=== PATIENT | male | born 1945 | race Caucasian/White ===

== ENCOUNTER 2024-01-26 18:51 | Inpatient (IN) | payer MEDICARE, SELFPAY ==
[2024-01-26] VITALS (44 sets, daily range): BP systolic 100–183; BP diastolic 51–94; PULSE 2–69; BMI 25.7
[2024-01-26] MEDS: NITROGLYCERIN PREMIX 250 IV (17:13)
--- NOTE | 2024-01-26 17:27 | ED.GENMED ---
History of Present Illness
<Sheldon Ortiz PA-C - Last Filed: 01/26/24 23:10>
General
Chief Complaint: Breathing Problem
Time Seen by Provider: 01/26/24 17:11
History of Present Illness
History of Present Illness:
78-year-old male with history of chronic kidney disease and congestive heart failure presents to the emergency department for evaluation of sudden onset shortness of breath that developed while he was at the [employer] swimming. Lifeguards reportedly
measured a pulse oximetry of 50%. On arrival via EMS patient is on CPAP with O2 sat in the 70s, he is somnolent but answers questions appropriately, diffusely pale.
Review of Systems
<Sheldon Ortiz PA-C - Last Filed: 01/26/24 23:10>
Review of Systems
Allergies reviewed?: Yes
All Other Systems: ROS reviewed and negative except as documented in HPI and ROS
Phy Exam
<Sheldon Ortiz PA-C - Last Filed: 01/26/24 23:10>
Physical Exam
Physical Exam:
GEN: Acute respiratory distress, general pallor, somnolent
Eyes: PERRLA, EOMs intact, no scleral icterus
HENT: NCAT, oral mucosa moist, positive JVD
Lungs: Inspiratory crackles and expiratory wheezes heard throughout all lung cortés
Cardiac: RRR, no M/R/G, no peripheral edema. Radial pulses 2+ bilat
Abdomen: S, NT, ND, NABS, no masses or hepatosplenomegaly
Neuro: AO x 3, no focal deficits to BUE/BLE, normal sensation throughout
MSK: No gross deformity or ecchymosis. No edema. No digital clubbing
Skin: No rashes, petechiae. Normal color, no pallor or jaundice.
Psych: Calm, cooperative, proper hygiene
Scores
<Sheldon Ortiz PA-C - Last Filed: 07/22/24 23:10>
Heart Failure Risk
Heart Failure Risk Score: Yes
History of Stroke or TIA: No
History of intubation for respiratory distress: No
Heart rate on ED arrival >/= 110: Yes
SaO2 <90% on arrival on room air: Yes
HR >/=110 during 3min walk test (or too ill to perform test): Yes
ECG has acute ischemic changes: No
Urea >/=12mmol/L (BUN 33.6mg/dL): Yes
Serum CO2>/=35mmol/L: Yes
Troponin I or T elevated to OR Level (0.4mg/dL): Yes
NT-proBNP >/=5,000ng/L (5,000pg/ml): Yes
HF Risk Score: 9
Admission Status: VERY HIGH RISK 89% Consider admission to hospital
Course
<Sheldon Ortiz PA-C - Last Filed: 01/26/24 23:10>
Orders/Labs/Results
Orders:
Orders
01/26/24 Dinner
NPO
Allow oral meds: Yes
Allow clear liquids: Sips of Clears
01/26/24 17:11
Cardiac Monitoring- Treatment ONCE
IV Insert/Care/Rem.- Treatment PRN
Nitroglycerin 100 mg/250 ml [Nitroglycerin Premix] 100 mg in 250 ml IV NOW
Initial dose in mcg/min, then titrate:: 50
Titrate to keep:: SBP < 160 mmHg
Titrate by mcg/min:: 5 mcg/min, may increase by 10 mcg/min if dose > 20 mcg/min
Frequency of titrations (minutes):: every 3-5 minutes
Maximum dose in mcg/min:: 200
Begin to taper infusion when:: Remained at goal for 2hrs
Taper by mcg/min:: 5 mcg/min
Frequency of taper (minutes) if patient maintains goal:: 30
Taper to off?: Yes
If infusion off & no longer maintaining goal:: Contact Provider
Bipap [RESP] Stat
Patient to use own unit?: No
Inspiratory Pressure (cm H2O): 12
Expiratory Pressure (cm H2O): 5
01/26/24 17:12
CR Chest Portable - 1 View Urgent
Comment:
Reason For Exam: sob
Reason Study Needs to be Portable: Patient Unstable
01/26/24 17:14
Complete Blood Count/With Diff Urgent
Comprehensive Metabolic Panel Urgent
Magnesium Urgent
NT-proBNP Urgent
PTT Urgent
Prothrombin Time Urgent
TSH Urgent
Troponin I Urgent
01/26/24 17:24
Lactic Acid Urgent
Venous Blood Gas Urgent
%Oxygen/Room Air: 50
01/26/24 17:30
Electrocardiogram (*1) Urgent
Reason for Study: Shortness of Breath
EKG- Treatment ONCE
01/26/24 18:13
Bumetanide [Bumex] 1 mg IV NOW STA
01/26/24 18:24
Admit/Transfer Patient As Directed
Co-Sign Provider:
Level of Care: Inpatient admission
Assign to:: IMU- Intermediate Care
Physician / Group: bertrand
Diagnosis: chf exacerbation
Reason for Hospitalization: chf exacerbation
Expected length of stay greater than two midnights?: Yes
ELOS- Estimated Length of Stay in days: 2
I certify the patient meets the requirements for IP care: Yes
01/26/24 18:25
Code Status As Directed
Resuscitation Status: Do not resuscitate
Reached after discussion with pt or family/Healthcare POA: Yes
DNR Bracelet Application ONCE
01/26/24 20:26
Carvedilol [Coreg] 3.125 mg PO BID
Heparin 5,000 units SC Q12
01/26/24 20:26
Activity As Directed
Activity Level: As Tolerated
Intake/ Output As Directed
Frequency: Per unit guidelines
Records Request [Obtain Records] As Directed
Dates of Information to be Released: progress notes
Type of Information Requested: Progress Notes
Obtain Records from: dr. wolf ned[facility] cardiology outpatient note
Vital Signs As Directed
Frequency: Other
Additional Instructions:: Q12 or per unit guidelines if more frequent.
Weight As Directed
Frequency: Daily
Type of Scale: Standing Scale
Comment: Daily morning weight. If unable to stand, use balanced bed scale.
Weight As Directed
Frequency: Once
Type of Scale: Standing Scale
Comment: Upon Admission. If unable to stand, use balanced bed scale.
Pulse Ox/cont/shift [RESP] Routine
Quantity: 1
Special Instructions: Daily pulse oximetry at rest. If greater than 92% at rest also obtain pulse oximetry
while ambulating as tolerated.
DX Deep Vein Thrombosis Video Routine
01/26/24 20:36
Sodium Chloride [Andrews, Saline Mist] 2 sprays NASAL Q4HPRN PRN
01/26/24 20:55
Troponin I Q6H
Comment: at admission & every 6 hours x 2 (3 total), ECG to be done with each level
01/27/24 00:00
HydrALAZINE [Apresoline] 25 mg PO Q8
01/27/24 02:26
Troponin I Q6H
Comment: at admission & every 6 hours x 2 (3 total), ECG to be done with each level
01/27/24 06:00
Complete Blood Count/No Diff IN AM
Comprehensive Metabolic Panel IN AM
01/27/24 08:00
Aspirin Low Dose EC [Aspir Low (Enteric Coated)] 81 mg PO DAILY
Bumetanide [Bumex] 1 mg IV BID@0800,1600
Cholecalciferol (Vitamin D3) [VITAMIN D3 (cholecalciferol)] 25 mcg PO DAILY
Dapagliflozin [Farxiga] 10 mg PO DAILY
Escitalopram Oxalate [Lexapro] 10 mg PO DAILY
Ferrous Sulfate [Feosol] 325 mg PO DAILY
Multivitamin [Theragran] 1 tablet PO DAILY
NIFEdipine EXTENDED RELEASE [Procardia Xl (Extended Release)] 90 mg PO DAILY
Rosuvastatin Calcium [Crestor] 5 mg PO DAILY
01/27/24 08:26
Troponin I Q6H
Comment: at admission & every 6 hours x 2 (3 total), ECG to be done with each level
Abnormal Lab Results
01/26/24 01/26/24
17:14 17:24
WBC 14.6 H 10^3/uL
(4.8-10.8)
RBC 4.30 L 10^6/uL
(4.70-6.10)
VBG pH 7.28 L
(7.32-7.43)
VBG pCO2 61 H mmHg
(35-48)
VBG pO2 66 H mmHg
(30-50)
VBG HCO3 28.7 H mmol/L
(22-27)
Sodium 134 L mmol/L
(135-145)
BUN 46 H mg/dl
(9-20)
Creatinine 2.1 H mg/dL
(0.7-1.3)
Glucose 120 H mg/dl
(70-99)
Troponin I 0.121 H* ng/ml
01/26/24 17:14
01/26/24 17:14
Vital Signs
Initial and Last Documented VS:
Initial Vital Signs
Pulse Resp BP Pulse Ox
72 26 183/73 64
01/26/24 17:11 01/26/24 17:11 01/26/24 17:11 01/26/24 17:11
Last Documented Vital Signs
Temp Pulse Resp BP Pulse Ox
97.6 F 54 16 100/52 100
01/26/24 20:46 01/26/24 22:45 01/26/24 22:45 01/26/24 22:30 01/26/24 22:45
<Andrés Baltazar, DO - Last Filed: 01/26/24 17:33>
Orders/Labs/Results
Orders:
Orders
01/26/24 Dinner
NPO
Allow oral meds: Yes
Allow clear liquids: Sips of Clears
01/26/24 17:11
Cardiac Monitoring- Treatment ONCE
IV Insert/Care/Rem.- Treatment PRN
Nitroglycerin 100 mg/250 ml [Nitroglycerin Premix] 100 mg in 250 ml IV NOW
Initial dose in mcg/min, then titrate:: 50
Titrate to keep:: SBP < 160 mmHg
Titrate by mcg/min:: 5 mcg/min, may increase by 10 mcg/min if dose > 20 mcg/min
Frequency of titrations (minutes):: every 3-5 minutes
Maximum dose in mcg/min:: 200
Begin to taper infusion when:: Remained at goal for 2hrs
Taper by mcg/min:: 5 mcg/min
Frequency of taper (minutes) if patient maintains goal:: 30
Taper to off?: Yes
If infusion off & no longer maintaining goal:: Contact Provider
Bipap [RESP] Stat
Patient to use own unit?: No
Inspiratory Pressure (cm H2O): 12
Expiratory Pressure (cm H2O): 5
01/26/24 17:12
CR Chest Portable - 1 View Urgent
Comment:
Reason For Exam: sob
Reason Study Needs to be Portable: Patient Unstable
01/26/24 17:14
Complete Blood Count/With Diff Urgent
Comprehensive Metabolic Panel Urgent
Magnesium Urgent
NT-proBNP Urgent
PTT Urgent
Prothrombin Time Urgent
TSH Urgent
Troponin I Urgent
01/26/24 17:24
Lactic Acid Urgent
Venous Blood Gas Urgent
%Oxygen/Room Air: 50
01/26/24 17:30
Electrocardiogram (*1) Urgent
Reason for Study: Shortness of Breath
EKG- Treatment ONCE
01/26/24 18:13
Bumetanide [Bumex] 1 mg IV NOW STA
01/26/24 18:24
Admit/Transfer Patient As Directed
Co-Sign Provider:
Level of Care: Inpatient admission
Assign to:: IMU- Intermediate Care
Physician / Group: bertrand
Diagnosis: chf exacerbation
Reason for Hospitalization: chf exacerbation
Expected length of stay greater than two midnights?: Yes
ELOS- Estimated Length of Stay in days: 2
I certify the patient meets the requirements for IP care: Yes
01/26/24 18:25
Code Status As Directed
Resuscitation Status: Do not resuscitate
Reached after discussion with pt or family/Healthcare POA: Yes
DNR Bracelet Application ONCE
01/26/24 20:26
Carvedilol [Coreg] 3.125 mg PO BID
Heparin 5,000 units SC Q12
01/26/24 20:26
Activity As Directed
Activity Level: As Tolerated
Intake/ Output As Directed
Frequency: Per unit guidelines
Records Request [Obtain Records] As Directed
Dates of Information to be Released: progress notes
Type of Information Requested: Progress Notes
Obtain Records from: [facility] outpatient note
Vital Signs As Directed
Frequency: Other
Additional Instructions:: Q12 or per unit guidelines if more frequent.
Weight As Directed
Frequency: Daily
Type of Scale: Standing Scale
Comment: Daily morning weight. If unable to stand, use balanced bed scale.
Weight As Directed
Frequency: Once
Type of Scale: Standing Scale
Comment: Upon Admission. If unable to stand, use balanced bed scale.
Pulse Ox/cont/shift [RESP] Routine
Quantity: 1
Special Instructions: Daily pulse oximetry at rest. If greater than 92% at rest also obtain pulse oximetry
while ambulating as tolerated.
DX Deep Vein Thrombosis Video Routine
01/26/24 20:36
Sodium Chloride [Andrews, Saline Mist] 2 sprays NASAL Q4HPRN PRN
01/26/24 20:55
Troponin I Q6H
Comment: at admission & every 6 hours x 2 (3 total), ECG to be done with each level
01/27/24 00:00
HydrALAZINE [Apresoline] 25 mg PO Q8
01/27/24 02:26
Troponin I Q6H
Comment: at admission & every 6 hours x 2 (3 total), ECG to be done with each level
01/27/24 06:00
Complete Blood Count/No Diff IN AM
Comprehensive Metabolic Panel IN AM
01/27/24 08:00
Aspirin Low Dose EC [Aspir Low (Enteric Coated)] 81 mg PO DAILY
Bumetanide [Bumex] 1 mg IV BID@0800,1600
Cholecalciferol (Vitamin D3) [VITAMIN D3 (cholecalciferol)] 25 mcg PO DAILY
Dapagliflozin [Farxiga] 10 mg PO DAILY
Escitalopram Oxalate [Lexapro] 10 mg PO DAILY
Ferrous Sulfate [Feosol] 325 mg PO DAILY
Multivitamin [Theragran] 1 tablet PO DAILY
NIFEdipine EXTENDED RELEASE [Procardia Xl (Extended Release)] 90 mg PO DAILY
Rosuvastatin Calcium [Crestor] 5 mg PO DAILY
01/27/24 08:26
Troponin I Q6H
Comment: at admission & every 6 hours x 2 (3 total), ECG to be done with each level
Abnormal Lab Results
01/26/24 01/26/24
17:14 17:24
WBC 14.6 H 10^3/uL
(4.8-10.8)
RBC 4.30 L 10^6/uL
(4.70-6.10)
VBG pH 7.28 L
(7.32-7.43)
VBG pCO2 61 H mmHg
(35-48)
VBG pO2 66 H mmHg
(30-50)
VBG HCO3 28.7 H mmol/L
(22-27)
Sodium 134 L mmol/L
(135-145)
BUN 46 H mg/dl
(9-20)
Creatinine 2.1 H mg/dL
(0.7-1.3)
Glucose 120 H mg/dl
(70-99)
Troponin I 0.121 H* ng/ml
01/26/24 17:14
01/26/24 17:14
Vital Signs
Initial and Last Documented VS:
Initial Vital Signs
Pulse Resp BP Pulse Ox
72 26 183/73 64
01/26/24 17:11 01/26/24 17:11 01/26/24 17:11 01/26/24 17:11
Last Documented Vital Signs
Temp Pulse Resp BP Pulse Ox
97.6 F 54 16 100/52 100
01/26/24 20:46 01/26/24 22:45 01/26/24 22:45 01/26/24 22:30 01/26/24 22:45
<Sheldon Ortiz PA-C - Last Filed: 01/26/24 23:10>
MDM/Problems Addressed
MDM/Problems Addressed:
78-year-old male presents in acute respiratory failure secondary to decompensated heart failure. Respiratory status on arrival was quite tenuous however he improved with BiPAP and IV nitroglycerin as well as IV diuretics. Will be admitted to the
hospitalist service for further management.
<Sheldon Ortiz PA-C - Last Filed: 01/26/24 23:10>
*Critical Care Note
Total Time (30-74mins, 75-104mins- exclusive of procedures): 45 min
comment:
Critical care time: 45 minutes
Critical care time was exclusive of: Separately billable procedures, treating other patients, and teaching time
Critical care was necessary to treat or prevent imminent or life-threatening deterioration of the following conditions: Respiratory failure
Critical care time spent personally by me on the following activities:
[x] Review of old charts
[x] Obtaining history from patient or surrogate
[x] Ordering and review of the laboratory studies
[x] Ordering and review of radiographic studies
[x] Ordering and performing treatments and interventions
[x] Patient patient's response to treatment
[x] Development of treatment plan with patient or surrogate
<Andrés Baltazar DO - Last Filed: 01/26/24 17:33>
*Critical Care Note
Total Time (30-74mins, 75-104mins- exclusive of procedures): 30
ED Attending Note
<Sheldon Ortiz PA-C - Last Filed: 01/26/24 23:10>
-
Portions of this chart may have been created with voice recognition software.� Occasional wrong word or��sound alike� substitutions may have occurred due to the inherent limitations of voice recognition software.
<Andrés Baltazar DO - Last Filed: 01/26/24 17:33>
ED Attending Note
Patient seen and examined by attending physician: Yes
I performed the substantive portion of visit, reviewed & personally made and approve the management plan that is documented in note by myself or KALIN.: Yes
ED Attending Note:
Seen with PA examined independently somnolent elderly male respiratory stress looks volume overloaded on BiPAP check ABG chest x-ray follow closely
Discharge Plan
Departure
Patient Disposition: Admit
Date of Disposition: 01/26/24
Time of Disposition: 18:01
Admit to: IMU
Presentation/result/management discussed w/ accepting MD/DO: Hospitalist
Discharge Problem:
Acute decompensated heart failure, Acute hypoxemic respiratory failure
Interventions
Interventions:
*Risk Screen - Suicide Last Done: 01/26/24 17:19
*General Assessment Last Done: 01/26/24 17:19
*Neglect/Abuse Screening Last Done: 01/26/24 17:19
ED- Fall Risk Assessment Last Done: 01/26/24 20:39
*ED COVID-19 Vaccine History Last Done: 01/26/24 17:20
*Nursing Disposition Last Done: 01/26/24 20:39
ED- Cardiac Assessment Last Done: 01/26/24 17:30
ED- Pulmonary Assessment Last Done: 01/26/24 17:30
Discharge Date and Time
Discharge Date/Time: 01/26/24 20:40
[2024-01-26 17:28] LABS: Venous Blood Gas B.E. 0.5 mmol/L (-4 to +4); Venous Blood Gas HCO3 28.7 mmol/L (22-27); Venous Blood Gas O2 Sat % 89.9 %; Venous Blood Gas pCO2 61 mmHg (35-48); Venous Blood Gas pH 7.28 (7.32-7.43); Venous Blood Gas pO2 66 mmHg (30-50)
[2024-01-26 17:37] LABS: INR 1.01; PT 13.1 Sec (11.4-14.6)
[2024-01-26 17:38] LABS: APTT 27.9 Sec (23.4-35.0); Hematocrit 39.3 % (39.0-52.0); Hemoglobin 13.1 g/dL (13.0-18.0); Mean Corp Hgb Conc. 33.3 g/dL (33.0-37.0); Mean Corpuscular Hgb 30.5 pg (27.0-31.0); Mean Corpuscular Volume 91.4 fL (80.0-94.0); Mean Platelet Volume 9.5 fL (7.4-10.4); Platelet Count 332 10^3/uL (130-400); Red Cell Dist. Width 13.9 % (11.5-14.5); White Blood Cell Count 14.6 10^3/uL (4.8-10.8)
[2024-01-26 17:45] LABS: Lactic Acid 0.9 mmol/L (0.7-2.0)
[2024-01-26 17:48] LABS: ALT (SGPT) 25 U/L (0-50); AST (SGOT) 44 U/L (17-59); Alkaline Phosphatase 116 U/L (38-126); Blood Urea Nitrogen 46 mg/dl (9-20); Calcium 9.1 mg/dl (8.4-10.2); Carbon Dioxide 25 mmol/L (22-30); Chloride 100 mmol/L (98-107); Glucose 120 mg/dl (70-99); Magnesium 2.3 mg/dl (1.6-2.3); Potassium 4.4 mmol/L (3.5-5.1); Sodium 134 mmol/L (135-145); Total Bilirubin 0.5 mg/dl (0.2-1.3); Total Protein 6.6 g/dl (6.3-8.2); eGFR 31.23
[2024-01-26 17:52] LABS: NT-proBNP 7540 pg/ml; Troponin I 0.121 ng/ml
[2024-01-26 18:10] LABS: TSH 4.23 uIU/ml (0.47-4.68)
--- NOTE | 2024-01-26 18:31 | HPS.HSE ---
Family Physician
-
Family Physician:
Chief Complaint
-
shortness of breath
History of Present Illness
78-year-old male past medical history of hypertension, CHF, CKD, anxiety/depression, colon cancer status post colon resection, presenting to the emergency room for sudden onset shortness of breath which he developed while he was swimming at the
[facility]. Lifeguards measured pulse oximetry of 50%. Patient was in normal state of health prior to that. As per patient did not have any difficulty while in the pool or breath in any water.
Patient denied any chest pain, cough, fevers or chills. He has gained 3 pounds in the past week despite taking daily Bumex. He does have some lower extremity edema.
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 Rankin at [facility]. He has a history of high blood pressure that is well-controlled. He denies any history of heart attacks or cardiac stents.
Patient does not smoke or drink alcohol or use any drugs.
Medical History
Past Medical History
Past Medical History: Reports Other (hypertension, CHF, CKD, anxiety/depression, colon cancer status post colon resection)
Past Surgical History: Reports Other (colectomy, hernia repair )
Social History
Tobacco: Non-smoker
Alcohol: None
Drug: None
Family History
Family History: Not pertinent
Allergies / Home Medications
Allergies reflects when Allergies were last updated in [facility].
Home Medications with original date entered in [facility]
Allergy/Medication List:
Allergies
Allergy/AdvReac Type Severity Reaction Status Date / Time
No Known Allergies Allergy Verified 01/26/24 17:16
Home Medications
aspirin 81 mg tablet,delayed release 81 mg PO DAILY 01/26/24
bumetanide 1 mg tablet 1 mg PO DAILY 01/26/24
carvedilol 6.25 mg tablet 3.125 mg PO BID 01/26/24
cholecalciferol (vitamin D3) 25 mcg (1,000 unit) tablet 25 mcg PO DAILY 01/26/24
dapagliflozin propanediol 10 mg tablet (Farxiga) 10 mg PO DAILY 01/26/24
escitalopram oxalate 10 mg tablet (Lexapro) 10 mg PO DAILY 01/26/24
ferrous sulfate 325 mg (65 mg iron) tablet 325 mg PO DAILY 01/26/24
hydralazine 50 mg tablet 25 mg PO Q8H 01/26/24
multivitamin 1 tab PO DAILY 01/26/24
nifedipine 90 mg tablet,extended release 24 hr 90 mg PO DAILY 01/26/24
rosuvastatin 5 mg tablet 5 mg PO DAILY 01/26/24
sodium chloride 0.65 % nasal spray aerosol 2 spray intranasal Q4HPRN PRN congestion/rhinitis 01/26/24
Review of Systems
-
History Source: Patient
A 12 point ROS was completed and negative except as noted: Yes
Constitutional: Reports No Symptoms
EENT: Reports No Symptoms
Respiratory: Reports See HPI
Cardiac: Reports See HPI
Abdomen/GI: Reports No Symptoms
: Reports No Symptoms
Musculoskeletal: Reports No Symptoms
Skin: Reports No Symptoms
Neurological: Reports No Symptoms
Endocrine: Reports No Symptoms
Hematologic/Lymphatic: Reports No Symptoms
Psych: Reports No Symptoms
Physical Exam
Vital Signs
Vital Signs
Pulse Resp BP Pulse Ox
61 23 128/64 96
01/26/24 18:15 01/26/24 18:15 01/26/24 18:15 01/26/24 18:10
Physical Exam
General: Well Developed, Well Nourished and No Apparent Distress
HEENT: NormoCephalic, Moist mucous membranes and Atraumatic
Respiratory: Clear
Cardiac: S1/S2, Regular Rhythm and Peripheral Edema; No Murmur or Rub
GI: Soft, Non Tender, Non Distended and Normal Bowel Sounds; No Organomegaly
Rectal: Deferred by Provider
Musculoskeletal: No Clubbing, No Cyanosis and No Edema
Skin: No Rash
Neuro: Nonfocal/grossly intact
Laboratory Results
-
01/26/24 17:14
01/26/24 17:14
Laboratory Results
PT 13.1 Sec (11.4-14.6) 01/26/24 17:14
INR 1.01 01/26/24 17:14
APTT 27.9 Sec (23.4-35.0) 01/26/24 17:14
pH Cancelled 01/26/24 17:11
pCO2 Cancelled 01/26/24 17:11
pO2 Cancelled 01/26/24 17:11
HCO3 Cancelled 01/26/24 17:11
Lactic Acid 0.9 mmol/L (0.7-2.0) 01/26/24 17:24
Total Bilirubin 0.5 mg/dl (0.2-1.3) 01/26/24 17:14
AST 44 U/L (17-59) 01/26/24 17:14
ALT 25 U/L (0-50) 01/26/24 17:14
Alkaline Phosphatase 116 U/L (38-126) 01/26/24 17:14
Troponin I 0.121 ng/ml H* 01/26/24 17:14
Data Reviewed
-
Lab Data: Labs Reviewed by me
Old Records: Reviewed
Impression/Plan
-
IMPRESSION:
PLAN:
# Hypercarbic respiratory failure secondary to acute on chronic CHF exacerbation
# Hypertensive urgency
-VBG shows pCO2 61, pH of 7.28
-Chest x-ray shows bilateral pulmonary opacities likely alveolar/interstitial pulmonary edema
-Cardiac BNP of 7500
-Check I's and O's, daily weights
-Patient on BiPAP
-1 mg Bumex BID
-Nitroglycerin drip
-Continue Coreg
-Continue dapagliflozin
-Records request from [facility]
-Cardiology consulted
# Nonischemic myocardial injury
-No chest pain
-EKG shows normal sinus rhythm, LVH with repolarization
-Troponin of 0.12
-Trend troponins
-Continue aspirin
Essential hypertension
-Continue nifedipine, hydralazine,
Chronic kidney disease
-Creatinine of 2.1, unknown baseline
-Monitor with diuresis
Colon cancer status post colectomy
Anxiety/depression
-Continue Lexapro
DNR/DNI
DVT prophylaxis�heparin
N.p.o. while on BiPAP
[2024-01-26] MEDS: BUMEX 1 MG IV (18:58)
--- NOTE | 2024-01-26 20:30 | PTCARENOTE ---
Pt arrived to floor via stretcher from ED. Pt AAOx2, forgetful, and confused to time. Significant other Amaya at bedside. Per Amaya/ Pt, Daughters Rajani Cardozo and Denise Bonilla are NOT to get any information about pt and are NOT allowed to visit
pt. Per Amaya, pt has underlying dementia and is confused and forgetful at baseline. Pt able to nod head and make needs known at this time. HR in the 50's in SB with prolonged QT on the monitor. POX 98% on Bipap 18/8 with 15 LO2. Lungs dec t/o.
Nitro gtt infusing via right AC int to keep SBP<160. + bowel, round abd. +1 LE edema. Weak pedal pulses. Pt able to use urinal without difficulty. No issues to report at this time. call lezama in reach. bed alarm for pt safety. Will continue to
monitor.
[2024-01-26 21:27] LABS: Troponin I 0.166 ng/ml
[2024-01-26] MEDS: COREG 3.125 MG PO (22:18)
[2024-01-26] MEDS: HEPARIN 5000 UNITS SC (22:18)
[2024-01-27] VITALS (49 sets, daily range): BP systolic 98–142; BP diastolic 30–83; PULSE 2–83; BMI 25.5
[2024-01-27] MEDS: APRESOLINE 25 MG PO ×4 (00:50→23:52)
[2024-01-27 04:01] LABS: Hematocrit 31.3 % (39.0-52.0); Hemoglobin 10.6 g/dL (13.0-18.0); Mean Corp Hgb Conc. 33.9 g/dL (33.0-37.0); Mean Corpuscular Hgb 30.1 pg (27.0-31.0); Mean Corpuscular Volume 88.9 fL (80.0-94.0); Mean Platelet Volume 9.6 fL (7.4-10.4); Platelet Count 246 10^3/uL (130-400); Red Blood Cell Count 3.52 10^6/uL (4.70-6.10); Red Cell Dist. Width 13.7 % (11.5-14.5); White Blood Cell Count 10.6 10^3/uL (4.8-10.8)
--- NOTE | 2024-01-27 04:16 | PTCARENOTE ---
Nitro gtt discontinued per MD order. Pt no longer tolerating BIPAP, requesting mask to come off. Pt agitated, having brief moment of feeling like he is choking. Bipap mask removed. 6 LO2 NC applied. POX 95%. Pt coughing up thick saunders mucus. Pt
apologetic for getting upset. Pt used urinal, repositioned self in bed. Call lezama in reach. Bed alarm on bed. Will continue to monitor.
[2024-01-27 04:18] LABS: ALT (SGPT) 20 U/L (0-50); AST (SGOT) 32 U/L (17-59); Albumin 3.2 g/dl (3.5-5.0); Alkaline Phosphatase 80 U/L (38-126); Blood Urea Nitrogen 50 mg/dl (9-20); Calcium 8.9 mg/dl (8.4-10.2); Carbon Dioxide 25 mmol/L (22-30); Chloride 100 mmol/L (98-107); Estimated Creatinine Clearance 25 ml/min; Glucose 110 mg/dl (70-99); Potassium 4.2 mmol/L (3.5-5.1); Sodium 133 mmol/L (135-145); Total Bilirubin 0.5 mg/dl (0.2-1.3); Total Protein 5.5 g/dl (6.3-8.2); eGFR 31.23
--- NOTE | 2024-01-27 08:08 | CON.CAR ---
Addendum entered and electronically signed by Reji Gonzalez MD 01/27/24 12:11:
I saw and examined the patient.
The Dope Maintenance Worker's note was reviewed and I agree with the note.
Comment:
GEN: No distress, awake, Ox3
HEENT: supple, anicteric, mmm
LUNGS: scatt rhonchi
CV: Reg, S1/S2, 1/6 syst LSB, no gallop
ABD: soft, BS+, NT/ND
EXT: +1 edema
NEURO: Gross non-focal
SKIN: No rash
Plan:
He has a PMH of chronic HF with preserved LVEF, CAD, Creat 2.1, HTN, Lipids, dementia presents with hypoxia, acute HFpEF, and shortness of breath. Troponin is mildly abnormal.
Check Echo. Cont Bumex 1mg IV bid. Cont Coreg/Farxiga. 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
Will review records from Dr. Rankin.
CHF education.
Will need to follow creatinine 2.1 with diuresis.
He has no chest pains. I suspect abnormal troponin is nonischemic myocardial elevation due to CHF.
Original Note:
Consultation
Consultation Request
Date/Time Consultation Performed: 01/27/24
Requesting Provider: Dr. Griffin
Performing Provider: Leonor Burden PA-C for Dr. Gonzalez
Reason for Consultation: CHF
Medical History
-
Chief Complaint: SOB
History of Present Illness:
Patient is an 78-year-old male with past medical history of colon cancer status post resection/XRT/chemotherapy, considered to be in remission, CAD status post TN approximately 6 years ago details unknown, chronic heart failure with preserved EF,
CKD, mild dementia who presented to [facility] for evaluation of shortness of breath. He reports he is fairly active and was swimming yesterday when he developed shortness of breath. Lifeguards at the weed checked his pulse ox and it was
reportedly in the 50s and he was referred to the emergency room. He denies chest pain or palpitations, cough or fever/chills. He does report worsening lower extremity edema, although denies weight gain. He reports he recently was transitioned
from Lasix to Bumex about 3 months ago by his primary wet pan mixer, Dr. Rankin. He details to me significant stressors in his life which he believes in part contribute to his cardiac conditions.
PMH:
Chronic heart failure with preserved EF
CKD
CAD status post TN approximately 6 years ago, details unknown
Hypertension
Hyperlipidemia
Colon cancer status post resection/XRT/chemotherapy, in remission
Mild dementia
Anxiety/depression
Past Medical History
Past Medical History: Other (in HPI)
Social History
Tobacco: Former Smoker
Alcohol: Occasional
Personal: Other (significant other)
Living: With Family
Employment: Retired
Allergies / Home Medications
Allergy/AdvReac Type Severity Reaction Status Date / Time
No Known Allergies Allergy Verified 01/26/24 17:16
�Medication �Instructions �Recorded �Confirmed �Type
aspirin 81 mg tablet,delayed 81 mg PO DAILY 01/26/24 01/26/24 History
release
bumetanide 1 mg tablet 1 mg PO DAILY 01/26/24 01/26/24 History
carvedilol 6.25 mg tablet 3.125 mg PO BID 01/26/24 01/26/24 History
cholecalciferol (vitamin D3) 25 25 mcg PO DAILY 01/26/24 01/26/24 History
mcg (1,000 unit) tablet
dapagliflozin propanediol 10 mg 10 mg PO DAILY 01/26/24 01/26/24 History
tablet (Farxiga)
escitalopram oxalate 10 mg tablet 10 mg PO DAILY 01/26/24 01/26/24 History
(Lexapro)
ferrous sulfate 325 mg (65 mg 325 mg PO DAILY 01/26/24 01/26/24 History
iron) tablet
hydralazine 50 mg tablet 25 mg PO Q8H 01/26/24 01/26/24 History
multivitamin 1 tab PO DAILY 01/26/24 01/26/24 History
nifedipine 90 mg tablet,extended 90 mg PO DAILY 01/26/24 01/26/24 History
release 24 hr
rosuvastatin 5 mg tablet 5 mg PO DAILY 01/26/24 01/26/24 History
sodium chloride 0.65 % nasal spray 2 spray intranasal Q4HPRN PRN 01/26/24 01/26/24 History
aerosol congestion/rhinitis
Review of Systems
-
History Source: Patient
All other systems: Negative unless noted
Physical Exam
Vital Signs
Temp Pulse Resp BP Pulse Ox
97.4 F 57 17 115/37 97
01/27/24 03:10 01/27/24 04:00 01/27/24 04:00 01/27/24 04:00 01/27/24 04:00
Lab Results
01/27/24 03:09
01/27/24 03:09
Troponin I 0.190 ng/ml H* 01/27/24 03:09
Qas-L-Jdmudgazdkf Pept 7540 pg/ml 01/26/24 17:14
Physical Exam
General: No Apparent Distress, Comfortable and Other (on supp O2)
HEENT: Normocephalic, Anicteric and Moist Mucous Membranes
Respiratory: Crackles (B/L bases) and Non Labored Respirations
Cardiac: S1/S2 and Regular Rhythm
GI: Soft, Non Tender, Non Distended and Normal Bowel Sounds
Musculoskeletal: No Clubbing, No Cyanosis and Edema (2+ of B/L LE)
Skin: Warm and Dry
Neuro: AO x 3
Impression / Plan
-
Primary Nnp: Dr. Rankin of [place]
Assessment:
Presentation with SOB/DAWKINS
Hypoxia/hypercarbic respiratory failure
Hypertensive urgency
Acute on chronic heart failure with preserved EF
Elevated troponin, suspected nonischemic myocardial injury
CKD
CAD status post TN approximately 6 years ago, details unknown
Hypertension
Hyperlipidemia
Colon cancer status post resection/XRT/chemotherapy, in remission
Mild dementia
Anxiety/depression
Anemia
Mild hyponatremia
DNR code status
Plan:
-Patient presented to [facility] for evaluation of shortness of breath and hypoxia while swimming yesterday
-He was noted to have hypertensive urgency and started on IV nitro gtt with improvement in blood pressure. He has been weaned off IV nitro as of approximately 3:30 AM
-Also felt to be in acute heart failure with proBNP of 7540 and chest x-ray with evidence of pulmonary edema bilaterally. He was initially requiring BiPAP, now weaned to 6 L NC.
-continue to wean supp O2 as able
-continue IV bumex 1mg BID. Creatinine stable at 2.1
-Will obtain records from primary wet pan mixer for review. Patient states he was transitioned approximately 3 months ago from Lasix to Bumex with suboptimal response. Will need to solidify diuretic regimen for discharge, consider transition back
to Lasix versus possible torsemide
-Check echo
-Continue guideline directed medical therapy including Farxiga, Coreg. Also on hydralazine and nifedipine. Not a candidate for SHAE/ARB/Aldactone given baseline kidney dysfunction
-Troponin peaked at 0.19. No complaints of chest discomfort. EKG without acute ischemic change. Suspected nonischemic myocardial injury
-He has significant social stressors. Case management to follow.
-Discussed with nursing
Data Reviewed
-
EKG: Tracing Personally Visualized and interpreted
Radiology: Report Reviewed by me
Labs: Labs Reviewed by me
Old Records: Requested and Reviewed
[2024-01-27 08:11] LABS: Troponin I 0.168 ng/ml
[2024-01-27] MEDS: ASPIR LOW (ENTERIC COATED) 81 MG PO (09:06)
[2024-01-27] MEDS: CRESTOR 5 MG PO (09:06)
[2024-01-27] MEDS: THERAGRAN 1 TABLET PO (09:07)
[2024-01-27] MEDS: VITAMIN D3 (cholecalciferol) 25 MCG PO (09:07)
[2024-01-27] MEDS: LEXAPRO 10 MG PO (09:07)
[2024-01-27] MEDS: FARXIGA 10 MG PO (09:07)
[2024-01-27] MEDS: PROCARDIA XL (EXTENDED RELEASE) 90 MG PO (09:08)
[2024-01-27] MEDS: COREG 3.125 MG PO ×2 (09:09→20:04)
[2024-01-27] MEDS: FEOSOL 325 MG PO (09:09)
[2024-01-27] MEDS: BUMEX 1 MG IV ×2 (09:10→16:09)
[2024-01-27] MEDS: HEPARIN 5000 UNITS SC ×2 (09:12→20:04)
--- NOTE | 2024-01-27 09:46 | W.PN.HOSP.TC ---
Today's Communication/Plan
-
COnt IV diuresis
If BP remains less then 180/100 - transfer to [facility]
Assessment / Plan
Assessment / Plan
78yo M with PMHx of HTN, CAD s/p PA, colon CA s/p resection and chemo, Amxiety, CHF, POPPY, HLD, chronic allergic rhynitis brought with SOB, found flush pulmonary edema 2/2 hypertenive emergency. BP improved after nitro drip in ICU
A/P:
#Acute hypoxic hypercapnic respiraotory failure (dyspnea, tachypnea on admission with hypoxia, requiring 5L NC) 2/2 HFpEF
#Mom-ischemic myocardial injury with PMHx of CAD
#Hypertensive emergency
IV diuresis, follow electrolytes, daily weight, cont low sodium diet
Echo
Cardiology consult
Wean off O2
Adjust BP meds as tolerated
COnt rest of home meds
#Amxiety d/o
#Hx of colon CA
#CHronic allergic rhynitis
#CKD stage 3a-b
#HLD
cont home meds
Follow Cr
DVT ppx hep
DNR/DNI
I have spent at kleast 56min reviewing chart, test results, communication with consultants and direct patient care
Anticipated Discharge: > 48 hours
Subjective/Interval History
-
Date of Service: January 27, 2024
Objective Data
-
Labs:
Laboratory Results
01/27/24
03:09
WBC 10.6
Hgb 10.6 L
Hct 31.3 L
Plt Count 246 D
Sodium 133 L
Potassium 4.2
Chloride 100
Carbon Dioxide 25
BUN 50 H
Creatinine 2.1 H
Glucose 110 H
Calcium 8.9
Total Bilirubin 0.5
AST 32
ALT 20
Alkaline Phosphatase 80
Vital Signs:
Vital Signs
Temp Pulse Resp BP Pulse Ox
97.7 F 60 17 136/52 97
01/27/24 07:10 01/27/24 09:09 01/27/24 04:00 01/27/24 09:09 01/27/24 04:00
I&O
01/26/24 01/27/24 01/28/24
06:59 06:59 06:59
Intake Total 124 / 124
Output Total 1000 / 1000 250 / 250
Balance -876 / -876 -250 / -250
Review of Systems
-
History Source: Patient
Respiratory: Reports Trouble Breathing
Physical Exam
-
General: Well Developed and Well Nourished
HEENT: Normocephalic and Atraumatic
Respiratory: Crackles; Negative Wheezes
Cardiac: Regular Rhythm
GI: Soft, Nontender and Nondistended
Genito-urinary: No Costovertebral Tender
Musculoskeletal: No Clubbing and No Cyanosis
Skin: Warm
Neuro: Awake, Alert, Oriented and AO x 3
Hematologic / Lymphatic: No Lymphadenopathy
Psych: Calm
--- NOTE | 2024-01-27 11:46 | W.PN.UPDATE ---
Update Note
Progress Note Update
records obtained and reviewed from Dr. Rankin. Patient with CKD, Cr as of 10/24/23 was 1.93 and hgb was 12.6. Last echo from 07/18/2023 with EF 50 to 55%, moderate concentric LVH, grade 2 diastolic dysfunction, apical hypokinesis, moderate MR. He
reportedly had a hospitalization in July with presentation of LADARIUS and at that time his Lasix and losartan were discontinued. As of office visit 11/14/2023 he had noted some symptoms of swelling in his legs and orthopnea and he was started back on
Bumex 1 mg 3 times a week subsequently increased to 1 mg daily.
--- NOTE | 2024-01-27 13:15 | PTCARENOTE ---
Pulse ox 88% on room air today while sitting up in bed. Pulse ox 94% on 3 liters via nasal cannula. Patient has productive cough bringing up saunders secretion, using yankeur to clear airway. Patient very fatigued today, able to transfer to the chair
with 2 person assist at this time. Chair alarm in use for fall prevention. Denying pain or shortness of breath when asked.
--- NOTE | 2024-01-27 14:56 | CM ---
Patient with Dx Acute hypoxic hypercapnic respiratory failure. O2 3L. Receiving IV Bumex.
Met with patient who was A/O conversant with slow speech, and spoke with Amaya CURTIS by phone;
the patient resides with his SO Amaya in a split level house with no JEAN, 4+4 steps on main level and 8 steps up to bedroom/bath.
The patient has been independent in ADLs and ambulation without using any assistive device.
He is active at home and works out on his treadmill.
Patient and SO deny patient has had any falls in the past year.
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
DME - [facility], [facility]
VN - had prior VN neither patient or SO can remember agency name
SNF - none
PCP - Gonzalo Oropeza
Pharmacy - [facility]
Offered VN for HF education and patient declined, saying he already had HF education and follows what he was instructed to do.
Patient wanted CM to know that his children are not permitted to be given any information about his condition- reassured him that they are not listed as contacts in his chart and therefore CM would not be giving them information. Patient conveys
that his 2 children sued him to gain access to his 's sizable inheritance money when she , and the children lost the court case, and since then they have not had any contact.
Request to Amaya to bring in copy of POA document- she said she gave it to someone in the ED. Informed her that it's not in the chart- she brought in another copy - unit controller Barbra viewed the document - it lists Amaya as POA and his children
are not listed.
Plan watch for home O2 needs.
Plan home.
--- NOTE | 2024-01-27 20:15 | PTCARENOTE ---
Pt received from dayshift RN. Pt forgetful at times, Pt asks the same questions frequently and needs reorienting. Disoriented to time. Pt placed on bed alarm. Call light in reach. Took HS pills with water, swallow intact. Pt on 2L NC 02, lungs
diminished at the bases. RR even and currently unlabored. NSR on monitor. Expresses no new needs at this time.
[2024-01-28] VITALS (14 sets, daily range): BP systolic 95–166; BP diastolic 41–76; BMI 25.2
[2024-01-28 04:37] LABS: % Basophils 0.8 % (0-2); % Eosinophils 17.9 % (0-6); % Immature Granulocytes 0.1 % (0-0.5); % Lymphocytes 16.5 % (20.5-51.1); % Neutrophils 54.7 % (42.2-75.2); Absolute Basophils 0.1 10^3/uL (0-0.2); Absolute Eosinophils 1.5 10^3/uL (0-0.7); Absolute Lymphocytes 1.4 10^3/uL (1.2-3.4); Absolute Monocytes 0.8 10^3/uL (0.1-0.6); Absolute Neutrophils 4.6 10^3/uL (1.4-6.5); Hematocrit 30.7 % (39.0-52.0); Hemoglobin 10.4 g/dL (13.0-18.0); Mean Corp Hgb Conc. 33.9 g/dL (33.0-37.0); Mean Corpuscular Hgb 31.4 pg (27.0-31.0); Mean Corpuscular Volume 92.7 fL (80.0-94.0); Mean Platelet Volume 9.5 fL (7.4-10.4); Nucleated Red Blood Cells % 0 % (-); Platelet Count 208 10^3/uL (130-400); Red Blood Cell Count 3.31 10^6/uL (4.70-6.10); Red Cell Dist. Width 13.8 % (11.5-14.5); White Blood Cell Count 8.4 10^3/uL (4.8-10.8)
[2024-01-28 05:09] LABS: ALT (SGPT) 17 U/L (0-50); AST (SGOT) 30 U/L (17-59); Albumin 2.9 g/dl (3.5-5.0); Alkaline Phosphatase 57 U/L (38-126); Blood Urea Nitrogen 51 mg/dl (9-20); Calcium 8.8 mg/dl (8.4-10.2); Carbon Dioxide 26 mmol/L (22-30); Chloride 101 mmol/L (98-107); Direct Bilirubin 0.2 mg/dl (0.0-0.4); Estimated Creatinine Clearance 24 ml/min; Glucose 87 mg/dl (70-99); Magnesium 2.1 mg/dl (1.6-2.3); Phosphorus 4.1 mg/dl (2.5-4.5); Potassium 3.9 mmol/L (3.5-5.1); Sodium 132 mmol/L (135-145); Total Bilirubin 0.6 mg/dl (0.2-1.3); Total Protein 5.1 g/dl (6.3-8.2); eGFR 29.54
--- NOTE | 2024-01-28 08:43 | W.PN.CARDCBS ---
Addendum entered and electronically signed by Marc Taylor MD 01/28/24 10:41:
I saw and examined the patient.
The ACROBATIC DANCER or PA's note was reviewed and I agree with the note.
Comment: General: Well developed, well nourished in NAD.
Neck: Supple, no JVD, HJR, carotids +2 B/L, no bruits bilaterally.
Heart: Non displaced PMI, RRR, no murmurs, No S3, S4, no rubs.
Lungs: Scattered rhonchi
Extremities: No clubbing, cyanosis or edema bilaterally.
Neuro: Grossly nonfocal, awake, alert and oriented x3.
Patient is a very difficult historian. He remains on oxygen. Although creatinine has worsened slightly to 2.2 will continue IV Bumex. May need to consider nephrology evaluation. Check echocardiogram
Original Note:
Today's Communication / Plan
-
continue IV bumex
follow Cr
wean supp O2
echo
Impression / Plan
-
Primary Conductor/Brakeman: Dr. Rankin of [place]
Assessment:
Presentation with SOB/DAWKINS
Hypoxia/hypercarbic respiratory failure
Hypertensive urgency
Acute on chronic heart failure with preserved EF
Elevated troponin, suspected nonischemic myocardial injury
CKD
CAD status post VT approximately 6 years ago, details unknown
Hypertension
Hyperlipidemia
Colon cancer status post resection/XRT/chemotherapy, in remission
Mild dementia
Anxiety/depression
Anemia
Mild hyponatremia
DNR code status
echo 07/18/2023 at [facility]: EF 50 to 55%, moderate concentric LVH, grade 2 diastolic dysfunction, apical hypokinesis, moderate MR
Plan:
-Patient presented to [facility] for evaluation of shortness of breath and hypoxia while swimming. with hypertensive urgency on arrival and started on IV nitro gtt with improvement in blood pressure. He has been off of IV nitro for 24 hours
-Also felt to be in acute heart failure with proBNP of 7540 and chest x-ray with evidence of pulmonary edema bilaterally. He was initially requiring BiPAP, now weaned to 2L NC.
-continue to wean supp O2 as able
-continue IV bumex 1mg BID. Creatinine stable at 2.2. weight trending down if accurate.
-his lasix and losartan were discontinued 07/2023 due to admission to [facility] for LADARIUS. he was then started on bumex 11/2023 due to symptoms of CHF. would consider transition back to lasix or to torsemide upon DC
-CHF education
-last echo from 07/2023 at [facility] with results as above. for echo today
-Continue guideline directed medical therapy including Farxiga, Coreg. Also on hydralazine and nifedipine. Not a candidate for SHAE/ARB/Aldactone given baseline kidney dysfunction
-Troponin peaked at 0.19. No complaints of chest discomfort. EKG without acute ischemic change. Suspected nonischemic myocardial injury in setting of acute CHF, CKD, and hypertensive urgency
Progress Note - Conductor/Brakeman
Subjective
Date of Service: January 28, 2024
reports good urine output, feels breathing is improving
Objective
Labs:
01/28/24 04:23
01/28/24 04:23
Labs
Hgb 10.4 g/dL (13.0-18.0) L 01/28/24 04:23
Hct 30.7 % (39.0-52.0) L 01/28/24 04:23
Plt Count 208 10^3/uL (130-400) 01/28/24 04:23
PT 13.1 Sec (11.4-14.6) 01/26/24 17:14
INR 1.01 01/26/24 17:14
APTT 27.9 Sec (23.4-35.0) 01/26/24 17:14
Sodium 132 mmol/L (135-145) L 01/28/24 04:23
Potassium 3.9 mmol/L (3.5-5.1) 01/28/24 04:23
BUN 51 mg/dl (9-20) H 01/28/24 04:23
Creatinine 2.2 mg/dL (0.7-1.3) H 01/28/24 04:23
Glucose 87 mg/dl (70-99) 01/28/24 04:23
Troponins
01/26/24 01/26/24 01/27/24
17:14 20:55 03:09
Troponin I 0.121 H* 0.166 H* D 0.190 H*
01/27/24
07:33
Troponin I 0.168 H*
Vital Signs and I&O:
Vital Signs
Temp Pulse Resp BP Pulse Ox
98.1 F 56 15 140/53 98
01/28/24 03:40 01/28/24 03:45 01/28/24 03:45 01/28/24 03:00 01/28/24 03:30
Vital Signs
Temp Pulse Resp BP Pulse Ox
98.1 F 56 15 140/53 98
01/28/24 03:40 01/28/24 03:45 01/28/24 03:45 01/28/24 03:00 01/28/24 03:30
Intake & Output
01/26/24 01/27/24 01/28/24 01/29/24
07:59 07:59 07:59 07:59
Intake Total 124 / 124 400 / 400
Output Total 1250 / 1250 1350 / 1350
Balance -1126 / -1126 -950 / -950
Physical Exam
Physical Exam
GEN: No distress, awake, alert, oriented x3. sitting in chair. on supp O2
HEENT: supple, anicteric, mmm, eomi
LUNGS: CTA B/L, no wheezes
CV: Reg, S1/S2, 1/6 syst LSB
ABD: soft, BS+, NT/ND
EXT: No cyanosis, clubbing. 2+ edema of B/L LE
NEURO: Gross non-focal
SKIN: Warm, pink, dry. No rash
[2024-01-28] MEDS: PROCARDIA XL (EXTENDED RELEASE) 90 MG PO (08:58)
[2024-01-28] MEDS: BUMEX 1 MG IV ×2 (08:59→16:52)
[2024-01-28] MEDS: APRESOLINE 25 MG PO ×2 (08:59→16:52)
[2024-01-28] MEDS: FEOSOL 325 MG PO (08:59)
[2024-01-28] MEDS: ASPIR LOW (ENTERIC COATED) 81 MG PO (08:59)
[2024-01-28] MEDS: THERAGRAN 1 TABLET PO (08:59)
[2024-01-28] MEDS: CRESTOR 5 MG PO (08:59)
[2024-01-28] MEDS: COREG 3.125 MG PO ×2 (08:59→19:39)
[2024-01-28] MEDS: LEXAPRO 10 MG PO (08:59)
[2024-01-28] MEDS: FARXIGA 10 MG PO (08:59)
[2024-01-28] MEDS: VITAMIN D3 (cholecalciferol) 25 MCG PO (08:59)
[2024-01-28] MEDS: HEPARIN 5000 UNITS SC ×2 (09:00→19:38)
--- NOTE | 2024-01-28 09:29 | PTCARENOTE ---
Pt received from weight shifter RN. Ox2 and forgetful, answers questions appropriately but often he steers the conversation to his poor relationship with his dtr's. He's unable to give a clear health history. NSr with a BBB and long QT on tele, +2 LE
edema, + pulses. 95% on 2L NC. Breath sounds with minimal scattered crackles. Cough productive of thick saunders sputum. BSC x1 w/ rolling walker. Using urinal appropriately while receiving IV Bumex. Skin clear and intact.
--- NOTE | 2024-01-28 10:00 | W.PN.HOSP.TC ---
Today's Communication/Plan
-
cont diuresis - neg 1L balance
Wean off O2
Assessment / Plan
Assessment / Plan
78yo M with PMHx of HTN, CAD s/p NC, colon CA s/p resection and chemo, Amxiety, CHF, POPPY, HLD, chronic allergic rhynitis brought with SOB, found flush pulmonary edema 2/2 hypertensive emergency. BP improved after nitro drip in ICU
A/P:
#Acute hypoxic hypercapnic respiraotory failure (dyspnea, tachypnea on admission with hypoxia, requiring 5L NC) 2/2 HFpEF
#Mom-ischemic myocardial injury with PMHx of CAD
#Hypertensive emergency
IV diuresis, follow electrolytes, daily weight, cont low sodium diet
Echo
Cardiology consult
Wean off O2
Adjust BP meds as tolerated
COnt rest of home meds
#Amxiety d/o
#Hx of colon CA
#CHronic allergic rhynitis
#CKD stage 3a-b
#HLD
cont home meds
Follow Cr
DVT ppx hep
DNR/DNI
I have spent at [facility] 56min reviewing chart, test results, communication with consultants and direct patient care
Anticipated Discharge: 24 - 48 hours
Subjective/Interval History
-
Date of Service: January 28, 2024
Objective Data
-
Labs:
Laboratory Results
01/28/24
04:23
WBC 8.4
Hgb 10.4 L
Hct 30.7 L
Plt Count 208
Sodium 132 L
Potassium 3.9
Chloride 101
Carbon Dioxide 26
BUN 51 H
Creatinine 2.2 H
Glucose 87
Calcium 8.8
Total Bilirubin 0.6
AST 30
ALT 17
Alkaline Phosphatase 57
Vital Signs:
Vital Signs
Temp Pulse Resp BP Pulse Ox
97.9 F 59 23 166/62 97
01/28/24 07:10 01/28/24 09:45 01/28/24 09:45 01/28/24 08:58 01/28/24 09:45
I&O
01/27/24 01/28/24 01/29/24
06:59 06:59 06:59
Intake Total 124 / 124 400 / 400 480 / 480
Output Total 1000 / 1000 1600 / 1600 400 / 400
Balance -876 / -876 -1200 / -1200 80 / 80
Review of Systems
-
History Source: Patient
All other systems: Reviewed and negative
Physical Exam
-
General: No Apparent Distress
HEENT: Normocephalic and Atraumatic
Respiratory: Crackles
Cardiac: Regular Rhythm
GI: Soft and Nontender
Musculoskeletal: No Clubbing, No Cyanosis, Edema, Right Lower Extrem and Edema, Left Lower Extrem
Skin: Warm
Neuro: Awake, Alert, Oriented and AO x 3
Psych: Calm
--- NOTE | 2024-01-28 19:45 | SUR.OPER ---
Pt received from previous RN. Pt disoriented to time. bed alarm on. pt calls out, does not use call lezama. pt using urinal to void. NSR on monitor. 2L nc 02, sat 95%, RR even unlabored. Call light in reach.
[2024-01-29] VITALS (11 sets, daily range): BP systolic 103–174; BP diastolic 44–73; BMI 24.7
[2024-01-29] MEDS: APRESOLINE 25 MG PO ×3 (00:10→17:04)
[2024-01-29 05:22] LABS: Blood Urea Nitrogen 52 mg/dl (9-20); Calcium 9.1 mg/dl (8.4-10.2); Carbon Dioxide 28 mmol/L (22-30); Chloride 100 mmol/L (98-107); Estimated Creatinine Clearance 25 ml/min; Glucose 90 mg/dl (70-99); Phosphorus 4.1 mg/dl (2.5-4.5); Potassium 3.9 mmol/L (3.5-5.1); Sodium 134 mmol/L (135-145); eGFR 31.23
--- NOTE | 2024-01-29 08:29 | W.PN.HOSP.TC ---
Today's Communication/Plan
-
COnt diuresis - Cr stable
-3L balance since admission
cont to wean off O2
Assessment / Plan
Assessment / Plan
78yo M with PMHx of HTN, CAD s/p SC, colon CA s/p resection and chemo, Amxiety, CHF, POPPY, HLD, chronic allergic rhynitis brought with SOB, found flush pulmonary edema 2/2 hypertensive emergency. BP improved after nitro drip in ICU
A/P:
#moderate-severe MR
#Pulmonary HTN
#Acute hypoxic hypercapnic respiraotory failure (dyspnea, tachypnea on admission with hypoxia, requiring 5L NC) 2/2 HFpEF
#Mom-ischemic myocardial injury with PMHx of CAD
#Hypertensive emergency
IV diuresis, follow electrolytes, daily weight, cont low sodium diet
Echo: Hypokinesis distal inferoapical and distal anteroseptal mccray, EF 40-45%, grade II diastolic dysfunction
Cardiology consult
Wean off O2
Adjust BP meds as tolerated
COnt rest of home meds
#Anxiety d/o
#Hx of colon CA
#Chronic allergic rhinitis
#CKD stage 3a-b
#HLD
cont home meds
Follow Cr
DVT ppx hep
DNR/DNI
I have spent at least 56min reviewing chart, test results, communication with consultants and direct patient care
Anticipated Discharge: 24 - 48 hours
Subjective/Interval History
-
Date of Service: January 29, 2024
Objective Data
-
Labs:
Laboratory Results
01/29/24
04:10
Sodium 134 L
Potassium 3.9
Chloride 100
Carbon Dioxide 28
BUN 52 H
Creatinine 2.1 H
Glucose 90
Calcium 9.1
Vital Signs:
Vital Signs
Temp Pulse Resp BP Pulse Ox
98.6 F 59 14 173/69 94
01/29/24 02:55 01/29/24 06:15 01/29/24 06:15 01/29/24 06:02 01/29/24 06:15
I&O
01/28/24 01/29/24 01/30/24
06:59 06:59 06:59
Intake Total 400 / 400 480 / 480
Output Total 1600 / 1600 1475 / 1475
Balance -1200 / -1200 -995 / -995
Review of Systems
-
All other systems: Reviewed and negative
Physical Exam
-
General: Well Developed and Well Nourished
Respiratory: Negative Wheezes, Rales or Crackles
Cardiac: Regular Rhythm
GI: Soft, Nontender and Nondistended
Musculoskeletal: No Clubbing, No Cyanosis and No Edema
Neuro: Awake, Alert, Oriented and AO x 3
Psych: Calm
--- NOTE | 2024-01-29 08:30 | PTCARENOTE ---
Patient received from welder 2nd shift. Patient resting comfortably in bed. AAO, VSS. No events noted overnight. No complaints of pain at this time. Currently on 2L N/C and will try to wean, BiPAP standby for PRN resp distress. Call lezama in reach.
[2024-01-29] MEDS: THERAGRAN 1 TABLET PO (08:48)
[2024-01-29] MEDS: FARXIGA 10 MG PO (08:48)
[2024-01-29] MEDS: FEOSOL 325 MG PO (08:48)
[2024-01-29] MEDS: ASPIR LOW (ENTERIC COATED) 81 MG PO (08:48)
[2024-01-29] MEDS: LEXAPRO 10 MG PO (08:48)
[2024-01-29] MEDS: BUMEX 1 MG IV ×2 (08:48→17:04)
[2024-01-29] MEDS: CRESTOR 5 MG PO (08:48)
[2024-01-29] MEDS: PROCARDIA XL (EXTENDED RELEASE) 90 MG PO (08:48)
[2024-01-29] MEDS: HEPARIN 5000 UNITS SC ×2 (08:48→19:56)
[2024-01-29] MEDS: COREG 3.125 MG PO ×2 (08:48→19:57)
[2024-01-29] MEDS: VITAMIN D3 (cholecalciferol) 25 MCG PO (08:48)
--- NOTE | 2024-01-29 12:20 | PN.CDI ---
CDI
- -
CDI:
Physician Documentation Request
Admit Date: 01/26/24 18:51
Dear Doctor Gaby,
Patient presented to ED for evaluation of sudden onset of shortness of breath while swimming. ED note states 'on arrival via EMS patient is on CPAP with O2 in the 70s, he is somnolent but answering questions appropriately, diffusely pale.'
01/25 nursing note states ' Pt arrived to floor via stretcher from ED. Pt AAOx2, forgetful, and confused to time'
Cardiology consult reports 'mild dementia'
Based on the above, could you clarify if any of the following, is the most likely etiology of the confusion/altered mental status.
Encephalopathy - indicate type, such as metabolic, toxic, septic, alcoholic, anoxic, hypertensive etc. due to a specific condition such as UTI, CVA, hyponatremia etc.
Dementia with acute delirium - indicate type fo dementia, such as Alzheimer's, senile, vascular, Lewy body etc.
Acute Delirium - indicate known or suspected etiology such as postoperative, due to opioids or other drugs etc. Can also indicate unknown or mixed etiologies.
Baseline Dementia - indicate type, such as Alzheimer's, senile, vascular, Lewy body etc., and any associated behavioral disturbances (aggressive, combative or violent behavior) if present
Acute or subacute confusional state due to ____ (specify known or suspected etiology)
Other
Use of terms such as suspected, likely, concern for, or probable (associated with a specific diagnosis that is being evaluated, monitored, or treated as if it exists) are acceptable and can be coded in the inpatient setting, when documented at the
time of discharge.
Thank you,
Kavita Ching RN, BSN
CDI Specialist
tiger text
Please use your independent medical judgment in providing your response.
--- NOTE | 2024-01-29 12:23 | W.PN.CARDCBS ---
Addendum entered and electronically signed by Jasvir Pimentel MD 01/29/24 18:31:
Patient feels better, feels that he will be ready to go home soon
PMH/PSH/FH/SH: Reviewed
Allergies: None
Outpatient medications: Aspirin 81 mg a day, Bumex 1 mg a day, carvedilol 3.125 twice daily, Farxiga 10 mg a day, hydralazine 25 mg every 8 hours, nifedipine ER 90 mg a day and rosuvastatin 5 mg daily
Current meds bumetanide 1 mg IV twice daily, subcu heparin, aspirin 81 mg a day, carvedilol 3.125 mg twice daily, dapagliflozin on 10 mg a day, hydralazine 25 mg every 8 hours, nifedipine ER 90 mg a day, rosuvastatin 5 mg a day, isosorbide
mononitrate 30 mg a day
ROS negative except as above
135/57, pulse 58, resp rate 21, afebrile, weight 69.4 kg, was 70.9 kg, if accurate 77 kg on admission
No acute distress, head and neck exam unremarkable, diminished breath sounds in bases, regular rate and rhythm, MR murmurs, abdomen benign, extremities with trace edema, neck veins okay neuro nonfocal musculoskeletal intact
Sodium 134, potassium 3.9, BUN/creatinine 52 and 2.1, creatinine is stable, BUN is stable
Assessment:
Acute on chronic heart failure with mildly reduced EF with hypoxemic and hypercapnic respiratory failure
Hypertensive urgency
Elevated troponin, suspected nonischemic myocardial injury
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
Mod to severe MR
CKD
CAD status post [place] approximately 6 years ago, details unknown
Hypertension
Hyperlipidemia
Colon cancer status post resection/XRT/chemotherapy, in remission
Mild dementia
Anxiety/depression
Anemia
Mild hyponatremia
DNR code status
Plan:
He appears improved with regards to acute heart failure with mildly reduced EF. He is probably approaching dry weight and his creatinine is stable. Drivers for this admission could relate to discontinue of losartan and furosemide related to
LADARIUS/CKD earlier this year.
Continue carvedilol and SGLT2 antagonist. Agree with the addition of nitrates to hydralazine for GDMT. Will continue to hold SHAE/ARB/spironolactone/ARNI
.
Probable transition to oral Bumex in 24 to 48 hours.
.
As outpatient, [facility] can be considered by Dr. Rankin his primary talent acquisition manager. Also, with drop in EF compared to earlier this year Given stage IV CKD. And detectable troponin, need for ischemic evaluation can be considered by Dr. Rankin.
.
Okay to proceed with discharge planning
Original Note:
Today's Communication / Plan
-
Continue IV lasix diuresis
follow Cr
wean supp O2
results of echo reviewed with patient - EF 40-45% with mod to severe MR
add imdur. continue coreg, hydralazine, farxiga
would consider for ischemic evaluation, likely as OP through primary talent acquisition manager as well as evaluation for mitral valve intervention.
Impression / Plan
-
Primary Chaser Helper: Dr. Rankin of [place]
Assessment:
Presentation with SOB/DAWKINS
Hypoxia/hypercarbic respiratory failure
Hypertensive urgency
Acute on chronic heart failure with preserved EF
Elevated troponin, suspected nonischemic myocardial injury
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
Mod to severe MR
CKD
CAD status post OR approximately 6 years ago, details unknown
Hypertension
Hyperlipidemia
Colon cancer status post resection/XRT/chemotherapy, in remission
Mild dementia
Anxiety/depression
Anemia
Mild hyponatremia
DNR code status
echo 07/18/2023 at [facility]: EF 50 to 55%, moderate concentric LVH, grade 2 diastolic dysfunction, apical hypokinesis, moderate MR
Plan:
-Patient presented to [facility] for evaluation of shortness of breath and hypoxia while swimming. with hypertensive urgency on arrival and started on IV nitro gtt with improvement in blood pressure.
-Also felt to be in acute heart failure with proBNP of 7540 and chest x-ray with evidence of pulmonary edema bilaterally. He was initially requiring BiPAP, now weaned to 2L NC.
-continue to wean supp O2 as able
-weight continues to trend down if accurate. continue IV bumex 1mg BID. Creatinine stable at 2.1.
-his lasix and losartan were discontinued 07/2023 due to admission to [facility] for LADARIUS. he was then started on bumex 11/2023 due to symptoms of CHF. would consider transition back to lasix or to torsemide upon DC
-CHF education
-last echo from 07/2023 at [facility] with results as above. repeat 01/27 with newly reduced EF 40-45% and mod to severe MR, results reviewed with patient 01/28
-Continue guideline directed medical therapy including Farxiga, Coreg. Also on hydralazine and nifedipine. Not a candidate for SHAE/ARB/Aldactone given baseline kidney dysfunction. will add imdur 30mg daily as BPs remain elevated
-Troponin peaked at 0.19. No complaints of chest discomfort. EKG without acute ischemic change. Suspected nonischemic myocardial injury in setting of acute CHF, CKD, and hypertensive urgency, however EF now reduced by echo with mod to severe MR.
-would consider for ischemic evaluation, likely as OP through primary talent acquisition manager as well as evaluation for mitral valve intervention.
Progress Note - Chaser Helper
Subjective
Date of Service: January 29, 2024
reports breathing much improved from admission. denies chest discomfort
Objective
Labs:
01/28/24 04:23
01/29/24 04:10
Labs
Hgb 10.4 g/dL (13.0-18.0) L 01/28/24 04:23
Hct 30.7 % (39.0-52.0) L 01/28/24 04:23
Plt Count 208 10^3/uL (130-400) 01/28/24 04:23
PT 13.1 Sec (11.4-14.6) 01/26/24 17:14
INR 1.01 01/26/24 17:14
APTT 27.9 Sec (23.4-35.0) 01/26/24 17:14
Sodium 134 mmol/L (135-145) L 01/29/24 04:10
Potassium 3.9 mmol/L (3.5-5.1) 01/29/24 04:10
BUN 52 mg/dl (9-20) H 01/29/24 04:10
Creatinine 2.1 mg/dL (0.7-1.3) H 01/29/24 04:10
Glucose 90 mg/dl (70-99) 01/29/24 04:10
Troponins
01/26/24 01/26/24 01/27/24
17:14 20:55 03:09
Troponin I 0.121 H* 0.166 H* D 0.190 H*
01/27/24
07:33
Troponin I 0.168 H*
Vital Signs and I&O:
Vital Signs
Temp Pulse Resp BP Pulse Ox
98.1 F 64 14 174 94
01/29/24 07:15 01/29/24 08:48 01/29/24 06:15 01/29/24 08:48 01/29/24 10:16
Vital Signs
Temp Pulse Resp BP Pulse Ox
98.1 F 64 14 17473 94
01/29/24 07:15 01/29/24 08:48 01/29/24 06:15 01/29/24 08:48 01/29/24 10:16
Intake & Output
01/27/24 01/28/24 01/29/24 01/30/24
07:59 07:59 07:59 07:59
Intake Total 124 / 124 400 / 400 480 / 480
Output Total 1250 / 1250 1350 / 1350 1725 / 1725
Balance -1126 / -1126 -950 / -950 -1245 / -1245
Physical Exam
Physical Exam
GEN: No distress, awake, alert, oriented x3. sitting in chair. on supp O2
HEENT: supple, anicteric, mmm, eomi
LUNGS: CTA B/L, no wheezes
CV: Reg, S1/S2, 2/6 murmur
ABD: soft, BS+, NT/ND
EXT: No cyanosis, clubbing. 1+ edema of B/L LE
NEURO: Gross non-focal
SKIN: Warm, pink, dry. No rash
--- NOTE | 2024-01-29 12:31 | PN.CDI ---
Addendum entered and electronically signed by Sumeet Griffin MD 02/09/24 16:47:
None of these. Patient just was agitated by mask
Original Note:
CDI
- -
CDI:
Physician Documentation Request
Admit Date: 01/26/24 18:51
Dear Doctor Gaby,
Patient presented to ED for evaluation of sudden onset of shortness of breath while swimming. ED note states 'on arrival via EMS patient is on CPAP with O2 in the 70s, he is somnolent but answering questions appropriately, diffusely pale.'
01/25 nursing note states ' Pt arrived to floor via stretcher from ED. Pt AAOx2, forgetful, and confused to time'
01/26 nurses note 'Pt no longer tolerating BIPAP, requesting mask to come off. Pt agitated....'
Cardiology consult reports 'mild dementia'
Based on the above, could you clarify if any of the following, is the most likely etiology of the confusion/altered mental status.
Encephalopathy - indicate type, such as metabolic, toxic, septic, alcoholic, anoxic, hypertensive etc. due to a specific condition such as UTI, CVA, hyponatremia etc.
Dementia with acute delirium - indicate type fo dementia, such as Alzheimer's, senile, vascular, Lewy body etc.
Acute Delirium - indicate known or suspected etiology such as postoperative, due to opioids or other drugs etc. Can also indicate unknown or mixed etiologies.
Baseline Dementia - indicate type, such as Alzheimer's, senile, vascular, Lewy body etc., and any associated behavioral disturbances (aggressive, combative or violent behavior) if present
Acute or subacute confusional state due to ____ (specify known or suspected etiology)
Other
Use of terms such as suspected, likely, concern for, or probable (associated with a specific diagnosis that is being evaluated, monitored, or treated as if it exists) are acceptable and can be coded in the inpatient setting, when documented at the
time of discharge.
Thank you,
Kavita Ching RN, BSN
CDI Specialist
tiger text
Please use your independent medical judgment in providing your response.
[2024-01-29] MEDS: IMDUR (EXTENDED RELEASE) 30 MG PO (14:49)
--- NOTE | 2024-01-29 20:03 | PTCARENOTE ---
Care assumed of Pt from previous RN. Pt resting in bed, chest rise and fall noted, RR even and unlabored, eyes open. Pt having oriented conversation, needs reinforcement of situation at times. Pt assisted back to bed by PCT from chair. Pt took HS
Coreg with water, swallow intact. Pt on 1L N[place] 02, sat 95%. lungs slightly diminished. NSR on monitor. Call light in reach, bed alarm on. was at bedside and went home for the evening.
[2024-01-30] VITALS (10 sets, daily range): BP systolic 101–147; BP diastolic 51–67; PULSE 55–56; O2SAT 95; BMI 24.4
[2024-01-30] MEDS: APRESOLINE 25 MG PO ×4 (00:01→23:57)
[2024-01-30 05:43] LABS: Blood Urea Nitrogen 53 mg/dl (9-20); Calcium 9.1 mg/dl (8.4-10.2); Carbon Dioxide 29 mmol/L (22-30); Chloride 102 mmol/L (98-107); Estimated Creatinine Clearance 25 ml/min; Glucose 93 mg/dl (70-99); Potassium 3.9 mmol/L (3.5-5.1); Sodium 134 mmol/L (135-145); eGFR 31.23
[2024-01-30] MEDS: THERAGRAN 1 TABLET PO (08:00)
[2024-01-30] MEDS: FEOSOL 325 MG PO (08:00)
[2024-01-30] MEDS: FARXIGA 10 MG PO (08:00)
[2024-01-30] MEDS: VITAMIN D3 (cholecalciferol) 25 MCG PO (08:00)
[2024-01-30] MEDS: ASPIR LOW (ENTERIC COATED) 81 MG PO (08:00)
[2024-01-30] MEDS: PROCARDIA XL (EXTENDED RELEASE) 90 MG PO (08:00)
[2024-01-30] MEDS: CRESTOR 5 MG PO (08:00)
[2024-01-30] MEDS: LEXAPRO 10 MG PO (08:00)
[2024-01-30] MEDS: COREG 3.125 MG PO ×2 (08:01→19:52)
[2024-01-30] MEDS: HEPARIN 5000 UNITS SC ×2 (08:01→19:52)
[2024-01-30] MEDS: BUMEX 1 MG IV ×2 (08:02→17:55)
--- NOTE | 2024-01-30 08:04 | W.PN.CARDCBS ---
Addendum entered and electronically signed by Nacho Peter DO 01/30/24 09:34:
I saw and examined the patient.
The Cake Inspector's note was reviewed and I agree with the note.
Comment:
Patient seen and examined. No acute events overnight. Patient resting comfortably in chair reporting improvement in shortness of breath lower extremity swelling. Denies any chest pain, lightheadedness, dizziness, or weakness. -705 cc overnight,
sinus bradycardia on telemetry without ectopy. Off nasal cannula sat greater than 92% on room air.
General: Well Developed and Well Nourished
Respiratory: Negative Wheezes, Rales or Crackles
Cardiac: Regular Rhythm
GI: Soft, Nontender and Nondistended
Musculoskeletal: No Clubbing, No Cyanosis and trace bl Edema
Neuro: Awake, Alert, Oriented and AO x 3
Psych: Calm
A/P as below
IV diuresis today transition to p.o. diuresis tomorrow
Continue goal-directed medical therapy with carvedilol, Farxiga, hydralazine, nitrate
Outpatient follow-up with primary hepatologist
Recommend blood work in 1 week following discharge (BMP)
Likely stable for discharge in next 24 hours
Original Note:
Today's Communication / Plan
-
continue IV bumex, consider transition to po lasix in AM
wean supp O2
continue GDMT of CM - coreg, farxiga, hydralazine, nitrates
OP follow up with Dr. Rankin arranged - can discuss OP ischemic evaluation and mitral valve intervention
Impression / Plan
-
Primary Conference Services Coordinator: Dr. Rankin of [place]
Assessment:
Presentation with SOB/DAWKINS
Hypoxia/hypercarbic respiratory failure
Hypertensive urgency
Acute on chronic heart failure with preserved EF
Elevated troponin, suspected nonischemic myocardial injury
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
Mod to severe MR
CKD
CAD status post [place] approximately 6 years ago, details unknown
Hypertension
Hyperlipidemia
Colon cancer status post resection/XRT/chemotherapy, in remission
Mild dementia
Anxiety/depression
Anemia
Mild hyponatremia
DNR code status
echo 07/18/2023 at [facility]: EF 50 to 55%, moderate concentric LVH, grade 2 diastolic dysfunction, apical hypokinesis, moderate MR
ECHO 01/28/24: EF 40 to 45%, severe hypokinesis of basal to mid inferior and inferolateral wall, mild hypokinesis of distal inferoapical and distal anteroseptal wall, stage II diastolic dysfunction, MAC, moderate to severe MR, trace TR, PAP 35 mmHg
Plan:
-Patient presented to [facility] for evaluation of shortness of breath and hypoxia while swimming. with hypertensive urgency on arrival and started on IV nitro gtt with improvement in blood pressure.
-Also felt to be in acute heart failure with proBNP of 7540 and chest x-ray with evidence of pulmonary edema bilaterally. He was initially requiring BiPAP, now weaned to 2L NC.
-continue to wean supp O2 as able, currently on 1L NC
-weight continues to trend down if accurate. continue IV bumex 1mg BID. Creatinine stable at 2.1.
-his lasix and losartan were discontinued 07/2023 due to admission to [facility] for LADARIUS. he was then started on bumex 11/2023 due to symptoms of CHF. would consider transition back to lasix or to torsemide upon DC - he was on bumex 1mg daily prior to
admission
-CHF education
-echo 01/27 with newly reduced EF 40-45% and mod to severe MR, results reviewed with patient 01/28
-Continue guideline directed medical therapy including Farxiga Coreg. Also on hydralazine and nifedipine. Not a candidate for SHAE/ARB/Aldactone given baseline kidney dysfunction. imdur added 01/28
-Troponin peaked at 0.19. No complaints of chest discomfort. EKG without acute ischemic change. Suspected nonischemic myocardial injury in setting of acute CHF, CKD, and hypertensive urgency, however EF now reduced by echo with mod to severe MR.
-would consider for ischemic evaluation, likely as OP through primary hepatologist as well as evaluation for mitral valve intervention. follow up with Dr. Rankin's office as been arranged
Progress Note - Conference Services Coordinator
Subjective
Date of Service: January 30, 2024
reports he is tired this morning. reports good urine output and improvement in breathing. no CP
Objective
Labs:
01/28/24 04:23
01/30/24 05:12
Labs
Hgb 10.4 g/dL (13.0-18.0) L 01/28/24 04:23
Hct 30.7 % (39.0-52.0) L 01/28/24 04:23
Plt Count 208 10^3/uL (130-400) 01/28/24 04:23
PT 13.1 Sec (11.4-14.6) 01/26/24 17:14
INR 1.01 01/26/24 17:14
APTT 27.9 Sec (23.4-35.0) 01/26/24 17:14
Sodium 134 mmol/L (135-145) L 01/30/24 05:12
Potassium 3.9 mmol/L (3.5-5.1) 01/30/24 05:12
BUN 53 mg/dl (9-20) H 01/30/24 05:12
Creatinine 2.1 mg/dL (0.7-1.3) H 01/30/24 05:12
Glucose 93 mg/dl (70-99) 01/30/24 05:12
Troponins
01/27/24
07:33
Troponin I 0.168 H*
Vital Signs and I&O:
Vital Signs
Temp Pulse Resp BP Pulse Ox
98.2 F 60 19 140/62 96
01/30/24 03:30 01/30/24 00:01 01/29/24 18:15 01/30/24 00:01 01/30/24 01:20
Vital Signs
Temp Pulse Resp BP Pulse Ox
98.2 F 60 19 140/62 96
01/30/24 03:30 01/30/24 00:01 01/29/24 18:15 01/30/24 00:01 01/30/24 01:20
Intake & Output
01/28/24 01/29/24 01/30/24 01/31/24
07:59 07:59 07:59 07:59
Intake Total 400 / 400 480 / 480 720 / 720
Output Total 1350 / 1350 1725 / 1725 1425 / 1425
Balance -950 / -950 -1245 / -1245 -705 / -705
Physical Exam
Physical Exam
GEN: No distress, awake, alert, oriented x3. on supp O2
HEENT: supple, anicteric, mmm, eomi
LUNGS: CTA B/L, no wheezes
CV: Reg, S1/S2, 2/6 murmur
ABD: soft, BS+, NT/ND
EXT: No cyanosis, clubbing. trace edema of B/L LE
NEURO: Gross non-focal
SKIN: Warm, pink, dry. No rash
--- NOTE | 2024-01-30 11:18 | W.PN.HOSP.TC ---
Today's Communication/Plan
-
still mild b/l LE swelling - cont diuresis IV one more day
PT/OT
Assessment / Plan
Assessment / Plan
78yo M with PMHx of HTN, CAD s/p MT, colon CA s/p resection and chemo, Amxiety, CHF, POPPY, HLD, chronic allergic rhynitis brought with SOB, found flush pulmonary edema 2/2 hypertensive emergency. BP improved after nitro drip in ICU. Weaned off O2.
A/P:
#moderate-severe MR
#Pulmonary HTN
#Acute hypoxic hypercapnic respiraotory failure (dyspnea, tachypnea on admission with hypoxia, requiring 5L NC) 2/2 HFpEF
#Mom-ischemic myocardial injury with PMHx of CAD
#Hypertensive emergency
IV diuresis, follow electrolytes, daily weight, cont low sodium diet
Echo: Hypokinesis distal inferoapical and distal anteroseptal mccray, EF 40-45%, grade II diastolic dysfunction
Cardiology consult: outpatient follow up for MR mgmt
Wean off O2
Adjust BP meds as tolerated
COnt rest of home meds
#Anxiety d/o
#Hx of colon CA
#Chronic allergic rhinitis
#CKD stage 3a-b
#HLD
cont home meds
Follow Cr
DVT ppx hep
DNR/DNI
I have spent at least 56min reviewing chart, test results, communication with consultants and direct patient care
Anticipated Discharge: Within 24 hours
Subjective/Interval History
-
Date of Service: January 30, 2024
Objective Data
-
Labs:
Laboratory Results
01/30/24
05:12
Sodium 134 L
Potassium 3.9
Chloride 102
Carbon Dioxide 29
BUN 53 H
Creatinine 2.1 H
Glucose 93
Calcium 9.1
Vital Signs:
Vital Signs
Temp Pulse Resp BP Pulse Ox
98.3 F 60 19 140/62 95
01/30/24 07:28 01/30/24 00:01 01/29/24 18:15 01/30/24 00:01 01/30/24 09:52
I&O
01/29/24 01/30/24 01/31/24
06:59 06:59 06:59
Intake Total 480 / 480 720 / 720
Output Total 1475 / 1475 1675 / 1675
Balance -995 / -995 -955 / -955
Review of Systems
-
History Source: Patient
All other systems: Reviewed and negative
Physical Exam
-
General: Well Developed, Well Nourished and No Apparent Distress
HEENT: Normocephalic
Respiratory: Clear to Auscultation; Negative Wheezes, Rales or Rhonchi
Cardiac: Regular Rhythm
GI: Soft and Nontender
Genito-urinary: No Costovertebral Tender
Musculoskeletal: No Clubbing, No Cyanosis, Edema, Right Lower Extrem and Edema, Left Lower Extrem
Skin: Warm
Neuro: Awake, Alert and Oriented
Psych: Calm
--- NOTE | 2024-01-30 13:21 | PN.CDI ---
Addendum entered and electronically signed by Sumeet Griffin MD 01/30/24 13:53:
He had respiratory failure that you have mentioned in your note, therefore meeting criteria for emergency
Original Note:
CDI
- -
CDI:
Physician Documentation Request
Admit Date: 01/26/24 18:51
Dear Doctor Gaby,
Patient admitted with Acute hypoxic hypercapnic respiratory failure 2/2 HFpEF.
Hospitalist progress notes include a diagnosis of hypertensive emergency.
Cardiology notes and H&P state Hypertensive urgency
Some sample blood pressures from the beginning of hospitalization:
Selected Entries
01/26/24
17:11 01/26/24
17:32 01/26/24
17:40
Blood pressure 183/73 160/78 168/76
01/26/24
18:15 01/26/24
18:30 01/26/24
18:55
Blood pressure 128/64 152/57 135/66
01/26/24
19:20 01/26/24
19:40 01/26/24
20:00
Blood pressure 134/69 141/66 139/60
01/26/24
23:30 01/27/24
08:00 01/27/24
09:30
Blood pressure 124/53 142/65 138/55
01/27/24
14:30 01/27/24
20:04 01/27/24
22:30
Blood pressure 121/30 122/52 134/55
Please clarify which the more accurate diagnosis reflecting the type and acuity of the documented hypertension:
Essential primary hypertension
Hypertensive Urgency - B/P is severely elevated (systolic > or = to 180 or diastolic > or = to 110) but there is no associated organ damage. Symptoms may include: headache, shortness of breath, nosebleeds, severe anxiety. Treatment usually consists
of addition to or adjusting of oral medications and does not generally necessitate hospitalization.
Hypertensive Emergency - B/P is severely elevated (systolic > or = to 180 or diastolic > or = to 110) but can occur at lower levels especially in patients who did not previously have high B/P. There is usually associated organ damage. Symptoms may
include: memory loss, LOC, CVA, SC, angina, renal failure, pulmonary edema. Generally requires more aggressive treatment and a hospitalization.
Other (please specify)
Use of terms such as suspected, likely, concern for, or probable (associated with a specific diagnosis that is being evaluated, monitored, or treated as if it exists) are acceptable and can be coded in the inpatient setting, when documented at the
time of discharge.
Thank you,
Kavita Ching RN, BSN
CDI Specialist
tiger text
Please use your independent medical judgment in providing your response.
--- NOTE | 2024-01-30 14:45 | W.HF.CON ---
Heart Failure
- LV Function
Left ventricular function study result: LV Ejection fraction >40%
Ejection Fraction Percentage: 40-45
- ARNI
Patient already on ARNI: No
Heart Failure ARNI Not Indicated: LV Ejection Fraction >/= 40%
- ACEI/ARB
Patient already on ACEI/ARB: No
Heart Failure ACEI/ARB Not Indicated: LV Ejection Fraction > 40%
- Beta Zoraida
Patient already on Evidence Based Beta Zoraida: Yes
- Mineralocorticord Receptor Antagonist
Patient already on MRA: No
Heart Failure MRA Not Indicated: LV Ejection Fraction > 40%
- SGLT-2 Inhibitor
Patient already on SGLT-2 Inhibitor: Yes
- NYHA CHF Classification
NYHA CHF Classification Level: Class III - Symptoms w/ min exertion, interferes w/ nml daily activity
- ACC/AHA Stage
ACC/AHA Stage: Stage C: Symptomatic Heart Failure
[2024-01-30] MEDS: IMDUR (EXTENDED RELEASE) 30 MG PO (15:58)
--- NOTE | 2024-01-30 17:28 | CM ---
Patient with Dx Acute hypoxic hypercapnic respiratory failure. Room air. Receiving IV Bumex. PT & OT; rec home PT vs no needs.
Plan home.
--- NOTE | 2024-01-30 21:00 | PTCARENOTE ---
Received patient AAOx2, disoriented to time. Denies pain, following commands, CALDWELL. Normal sinus, palpable radial and pedal pulses bilaterally. Normothermic, BP stable. 95% on room air, lung sounds diminished throughout. Abdomen soft, round, positive
bowel sounds. No BM, urinal to void. Right AC patent, WNL. Call lezama within reach.
[2024-01-31] VITALS (7 sets, daily range): BP systolic 108–173; BP diastolic 26–70; BMI 24.3
[2024-01-31 05:11] LABS: % Basophils 0.6 % (0-2); % Immature Granulocytes 0.3 % (0-0.5); % Lymphocytes 12.5 % (20.5-51.1); % Monocytes 10.1 % (1.7-9.3); % Neutrophils 60.5 % (42.2-75.2); Absolute Basophils 0.1 10^3/uL (0-0.2); Absolute Eosinophils 1.5 10^3/uL (0-0.7); Absolute Lymphocytes 1.1 10^3/uL (1.2-3.4); Absolute Monocytes 0.9 10^3/uL (0.1-0.6); Absolute Neutrophils 5.5 10^3/uL (1.4-6.5); Hematocrit 34.4 % (39.0-52.0); Hemoglobin 11.7 g/dL (13.0-18.0); Mean Corpuscular Volume 91.2 fL (80.0-94.0); Mean Platelet Volume 9.4 fL (7.4-10.4); Nucleated Red Blood Cells % 0 % (-); Platelet Count 211 10^3/uL (130-400); Red Blood Cell Count 3.77 10^6/uL (4.70-6.10); Red Cell Dist. Width 13.7 % (11.5-14.5); White Blood Cell Count 9.1 10^3/uL (4.8-10.8)
[2024-01-31 05:49] LABS: Blood Urea Nitrogen 60 mg/dl (9-20); Carbon Dioxide 28 mmol/L (22-30); Chloride 100 mmol/L (98-107); Estimated Creatinine Clearance 27 ml/min; Glucose 88 mg/dl (70-99); Magnesium 1.9 mg/dl (1.6-2.3); Potassium 4.1 mmol/L (3.5-5.1); Sodium 134 mmol/L (135-145); eGFR 33.12
[2024-01-31] MEDS: HEPARIN 5000 UNITS SC (08:19)
[2024-01-31] MEDS: LASIX 40 MG PO ×2 (08:19→15:21)
[2024-01-31] MEDS: LEXAPRO 10 MG PO (08:19)
[2024-01-31] MEDS: VITAMIN D3 (cholecalciferol) 25 MCG PO (08:20)
[2024-01-31] MEDS: APRESOLINE 25 MG PO ×2 (08:20→15:21)
[2024-01-31] MEDS: COREG 3.125 MG PO (08:20)
[2024-01-31] MEDS: ASPIR LOW (ENTERIC COATED) 81 MG PO (08:20)
[2024-01-31] MEDS: PROCARDIA XL (EXTENDED RELEASE) 90 MG PO (08:20)
[2024-01-31] MEDS: FARXIGA 10 MG PO (08:20)
[2024-01-31] MEDS: CRESTOR 5 MG PO (08:20)
[2024-01-31] MEDS: FEOSOL 325 MG PO (08:21)
[2024-01-31] MEDS: THERAGRAN 1 TABLET PO (08:21)
--- NOTE | 2024-01-31 08:31 | W.PN.HOSP.TC ---
Today's Communication/Plan
-
d/c
Assessment / Plan
Assessment / Plan
78yo M with PMHx of HTN, CAD s/p [place], colon CA s/p resection and chemo, Amxiety, CHF, POPPY, HLD, chronic allergic rhynitis brought with SOB, found flush pulmonary edema 2/2 hypertensive emergency. BP improved after nitro drip in ICU. Weaned off O2.
A/P:
#moderate-severe MR
#Pulmonary HTN
#Acute hypoxic hypercapnic respiraotory failure (dyspnea, tachypnea on admission with hypoxia, requiring 5L NC) 2/2 HFpEF
#Mom-ischemic myocardial injury with PMHx of CAD
#Hypertensive emergency
IV diuresis, follow electrolytes, daily weight, cont low sodium diet
Echo: Hypokinesis distal inferoapical and distal anteroseptal mccray, EF 40-45%, grade II diastolic dysfunction
Cardiology consult: outpatient follow up for MR mgmt
Wean off O2
Adjust BP meds as tolerated
COnt rest of home meds
#Anxiety d/o
#Hx of colon CA
#Chronic allergic rhinitis
#CKD stage 3a-b
#HLD
cont home meds
Follow Cr
DVT ppx hep
DNR/DNI
I have spent at least 56min reviewing chart, test results, communication with consultants and direct patient care
Anticipated Discharge: Today
Subjective/Interval History
-
Date of Service: January 31, 2024
Objective Data
-
Labs:
Laboratory Results
01/31/24
04:42
WBC 9.1
Hgb 11.7 L
Hct 34.4 L
Plt Count 211
Sodium 134 L
Potassium 4.1
Chloride 100
Carbon Dioxide 28
BUN 60 H
Creatinine 2.0 H
Glucose 88
Calcium 9.0
Vital Signs:
Vital Signs
Temp Pulse Resp BP Pulse Ox
98.2 F 56 14 167/60 95
01/31/24 07:37 01/31/24 06:00 01/31/24 06:00 01/31/24 06:00 01/31/24 04:00
I&O
01/30/24 01/31/24 02/01/24
06:59 06:59 06:59
Intake Total 720 / 720 960 / 960
Output Total 1675 / 1675 1725 / 1725
Balance -955 / -955 -765 / -765
Physical Exam
-
General: Well Developed, Well Nourished and No Apparent Distress
Respiratory: Clear to Auscultation
GI: Soft, Nontender and Nondistended
Musculoskeletal: No Clubbing, No Cyanosis and No Edema
Neuro: Awake, Alert, Oriented and AO x 3
--- NOTE | 2024-01-31 08:32 | W.DCSUMMARY ---
Discharge Summary
Discharge Data
Date of Admission: 01/26/24
Date of Discharge: 01/31/24
-
Pending Results: No
Hospital Course
78yo M with PMHx of HTN, CAD s/p CO, colon CA s/p resection and chemo, Amxiety, CHF, POPPY, HLD, chronic allergic rhynitis brought with SOB, found flush pulmonary edema 2/2 hypertensive emergency. BP improved after nitro drip in ICU. Weaned off O2
and as per chicken buyer was switched to oral lasix. PT/OT recommended home with PT. Medically stable for d/c and verbalized understanding of the instructions.
I have spent at least 36min preparing d/c, reviewing chart, test results, communication with consultants and direct patient care
A/P:
#moderate-severe MR
#Pulmonary HTN
#Acute hypoxic hypercapnic respiratory failure (dyspnea, tachypnea on admission with hypoxia, requiring 5L NC) 2/2 HFpEF
#Non-ischemic myocardial injury with PMHx of CAD
#Hypertensive emergency
#Anxiety d/o
#Hx of colon CA
#Chronic allergic rhinitis
#CKD stage 3a-b
#HLD
Discharge Plan
-
Patient Disposition: Home with Home Care
Discharge Diagnosis/Procedures: CHF
Condition: Good
Diet: 2 Gram Sodium, Diabetic, Carb Controlled and Restrict fluids to 48 oz
Activity: As tolerated
Blood Work: BMP in 1 week
Other Services: VN
Specialty Instructions: Weigh Daily- Call MD for wt gain/loss 3 lbs overnight/5 lbs in 1 week
Instructions: *PCP/Other Distribution District Supervisor Heart Failure Instructions
Referrals:
Gonzalo Oropeza MD [Family Provider] -
Jasvir Pimentel MD [Active] - in two to three weeks
Gonzalo Rankin MD [Non-Admitting Privileges] - 02/17/24 11:30 am (You cardiology follow up appointment has been moved up. You are scheduled on 02/17/[address] Rankin's physician product safety technical assistant, [place]. Please call with questions. )
Prescriptions:
New
carvedilol 3.125 mg Tablet
3.125 mg PO BID 30 Days Qty: 60 0RF
furosemide 40 mg Tablet
40 mg PO BID AT 0800,1600 30 Days Qty: 60 0RF
isosorbide mononitrate 30 mg Tablet Extended Release 24 Hr
30 mg PO NOON 30 Days Qty: 30 0RF
hydralazine 25 mg Tablet
25 mg PO Q8 30 Days Qty: 90 0RF
Continued
multivitamin Tablet
1 tab PO DAILY
aspirin 81 mg Tablet,Delayed Release (Dr/Ec)
81 mg PO DAILY
nifedipine 90 mg Tablet Extended Release 24hr
90 mg PO DAILY
ferrous sulfate 325 mg (65 mg iron) Tablet
325 mg PO DAILY
escitalopram oxalate [Lexapro] 10 mg Tablet
10 mg PO DAILY
sodium chloride 0.65 % Aerosol,Treadwell
2 spray INTRANASAL Q4HPRN PRN (Reason: congestion/rhinitis)
rosuvastatin 5 mg Tablet
5 mg PO DAILY
cholecalciferol (vitamin D3) 25 mcg (1,000 unit) Tablet
25 mcg PO DAILY
dapagliflozin propanediol [Farxiga] 10 mg Tablet
10 mg PO DAILY
Discontinued
carvedilol 6.25 mg Tablet
3.125 mg PO BID
bumetanide 1 mg Tablet
1 mg PO DAILY
hydralazine 50 mg Tablet
25 mg PO Q8H
Discharge Orders:
Discharge Patient (As Directed); Ordered 01/31/24
Ordered By: Sumeet Griffin
Discharge Date and Time
Print Language: LITHUANIAN
--- NOTE | 2024-01-31 10:24 | W.PN.CARDCBS ---
Addendum entered and electronically signed by Nacho Peter DO 01/31/24 10:52:
I saw and examined the patient.
The Retreader's note was reviewed and I agree with the note.
Comment:
Patient seen and examined. No acute events overnight. Patient resting comfortably in chair. Patient denies any chest pain, shortness of breath, lightheadedness, dizziness, near-syncope, syncope, weakness, or lower extremity swelling. Sinus
bradycardia/sinus rhythm on telemetry.
GEN: No distress, awake, alert, oriented x3. sitting in chair
HEENT: supple, anicteric, mmm, eomi
LUNGS: CTA B/L, no wheezes
CV: Reg, S1/S2, 2/6 murmur
ABD: soft, BS+, NT/ND
EXT: No cyanosis, clubbing. 1+ edema of B/L LE
NEURO: Gross non-focal
SKIN: Warm, pink, dry. No rash
A/P as below
Stable for DC from cardiology standpoint, continue goal-directed medical therapy with beta-mayra, Farxiga, hydralazine, Imdur, nifedipine
P.o. Lasix 40 mg twice daily with BMP in [address] Rankin
Follow-up with Dr. Rankin regarding further cardiovascular evaluation, testing, and possible intervention
Original Note:
Today's Communication / Plan
-
po lasix 40mg BID
BMP in 1 week with results to Dr. Rankin
continue coreg, farxiga, hydralazine, imdur, nifedipine
tubigrips
OP follow up with Dr. Rankin to discuss ischemic evaluation and possible mitral valve intervention
Impression / Plan
-
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 Rankin of [facility]
Assessment:
Presentation with SOB/DAWKINS
Hypoxia/hypercarbic respiratory failure
Hypertensive urgency
Acute on chronic heart failure with preserved EF
Elevated troponin, suspected nonischemic myocardial injury
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
Mod to severe MR
CKD
CAD status post TN approximately 6 years ago, details unknown
Hypertension
Hyperlipidemia
Colon cancer status post resection/XRT/chemotherapy, in remission
Mild dementia
Anxiety/depression
Anemia
Mild hyponatremia
DNR code status
echo 07/18/2023 at [facility]: EF 50 to 55%, moderate concentric LVH, grade 2 diastolic dysfunction, apical hypokinesis, moderate MR
ECHO 01/28/24: EF 40 to 45%, severe hypokinesis of basal to mid inferior and inferolateral wall, mild hypokinesis of distal inferoapical and distal anteroseptal wall, stage II diastolic dysfunction, MAC, moderate to severe MR, trace TR, PAP 35 mmHg
Plan:
-Patient feeling well. Now on room air
-Weight continues to trend down. He had been on Lasix up until July 2023 when he was admitted to [facility] for LADARIUS. He was then not started on diuretic again until 11/2023 when initiated on Bumex. He does not feel that this worked for him.
Therefore we will transition to p.o. Lasix 40 mg twice daily. He will have a BMP in 1 week.
-CHF education
-echo 01/27 with newly reduced EF 40-45% and mod to severe MR, results reviewed with patient 01/28
-Continue guideline directed medical therapy including Farxiga, Coreg. Also on hydralazine and nifedipine. Not a candidate for SHAE/ARB/Aldactone given baseline kidney dysfunction. imdur added 01/28
-Troponin peaked at 0.19. No complaints of chest discomfort. EKG without acute ischemic change. Suspected nonischemic myocardial injury in setting of acute CHF, CKD, and hypertensive urgency, however EF now reduced by echo with mod to severe MR.
-encouraged use of compression stockings. will order tubigrips while here
-would consider for ischemic evaluation, likely as OP through primary application security specialist as well as evaluation for mitral valve intervention. follow up with Dr. Rankin's office as been arranged
-ok for DC today from cardiac standpoint
ADMIT DATA:
-Patient presented to [facility] for evaluation of shortness of breath and hypoxia while swimming. with hypertensive urgency on arrival and started on IV nitro gtt with improvement in blood pressure.
-Also felt to be in acute heart failure with proBNP of 7540 and chest x-ray with evidence of pulmonary edema bilaterally. He was initially requiring BiPAP, now weaned to 2L NC.
Progress Note - Tank Truck Engine Mechanic
Subjective
Date of Service: January 31, 2024
Eager for discharge. Reports breathing much improved. No chest pain
Objective
Labs:
01/31/24 04:42
01/31/24 04:42
Labs
Hgb 11.7 g/dL (13.0-18.0) L 01/31/24 04:42
Hct 34.4 % (39.0-52.0) L 01/31/24 04:42
Plt Count 211 10^3/uL (130-400) 01/31/24 04:42
PT 13.1 Sec (11.4-14.6) 01/26/24 17:14
INR 1.01 01/26/24 17:14
APTT 27.9 Sec (23.4-35.0) 01/26/24 17:14
Sodium 134 mmol/L (135-145) L 01/31/24 04:42
Potassium 4.1 mmol/L (3.5-5.1) 01/31/24 04:42
BUN 60 mg/dl (9-20) H 01/31/24 04:42
Creatinine 2.0 mg/dL (0.7-1.3) H 01/31/24 04:42
Glucose 88 mg/dl (70-99) 01/31/24 04:42
Vital Signs and I&O:
Vital Signs
Temp Pulse Resp BP Pulse Ox
98.2 F 56 14 167/60 95
01/31/24 07:37 01/31/24 06:00 01/31/24 06:00 01/31/24 06:00 01/31/24 04:00
Vital Signs
Temp Pulse Resp BP Pulse Ox
98.2 F 56 14 167/60 95
01/31/24 07:37 01/31/24 06:00 01/31/24 06:00 01/31/24 06:00 01/31/24 04:00
Intake & Output
01/29/24 01/30/24 01/31/24 02/01/24
07:59 07:59 07:59 07:59
Intake Total 480 / 480 720 / 720 960 / 960
Output Total 1725 / 1725 1425 / 1425 1725 / 1725
Balance -1245 / -1245 -705 / -705 -765 / -765
Physical Exam
Physical Exam
GEN: No distress, awake, alert, oriented x3. sitting in chair
HEENT: supple, anicteric, mmm, eomi
LUNGS: CTA B/L, no wheezes
CV: Reg, S1/S2, 2/6 murmur
ABD: soft, BS+, NT/ND
EXT: No cyanosis, clubbing. 1+ edema of B/L LE
NEURO: Gross non-focal
SKIN: Warm, pink, dry. No rash
[2024-01-31] MEDS: IMDUR (EXTENDED RELEASE) 30 MG PO (15:21)
--- NOTE | 2024-01-31 16:22 | CM ---
Patient spoke with CM and significant other via phone. Patient plan is for discharge home today. IMM reviewed and patient to sign and return to nursing. patient stated that he did not want information given to patient daughters. CM confirmed that no
information available on daughters. Patient significant other stated that she is also patient's POA. CM reviewed options and patient confirmed that he wanted to have [facility] and referral sent via care port to [facility]. CM awaiting confirmation of
acceptance. Patient to go home with family. CM will continue to follow for discharge planning needs.
Plan; home with VN; referral sent via all scripts
== END 2024-01-31 17:39 | disposition home health service (06) | DRG 291 ==
LOC: IMU 18:51
PROVIDERS: Physician Assistant; ADMITTING PHYSICIAN Hospitalist; ATTENDING PHYSICIAN Internal Medicine; EMERGENCY PHYSICIAN Emergency Medicine; FAMILY PHYSICIAN Internal Medicine; OTHER PHYSICIAN Internal Medicine Cardiovascular Disease
PROC: 5A09357 Assistance with Respiratory Ventilation, Less than 24 Consecutive Hours, Continuous Positive Airway Pressure (ICD-10-PCS; 2024-01-26)
DX: I13.0 Hypertensive heart and chronic kidney disease with heart failure and stage 1 through stage 4 chronic kidney disease, or unspecified chronic kidney disease (principal); I50.33 Acute on chronic diastolic (congestive) heart failure; J96.02 Acute respiratory failure with hypercapnia; J96.01 Acute respiratory failure with hypoxia; I16.1 Hypertensive emergency; E87.1 Hypo-osmolality and hyponatremia; F03.A4 Unspecified dementia, mild, with anxiety; Z66 Do not resuscitate; N18.32 Chronic kidney disease, stage 3b; D63.1 Anemia in chronic kidney disease; I5A Non-ischemic myocardial injury (non-traumatic); I27.20 Pulmonary hypertension, unspecified; I25.10 Atherosclerotic heart disease of native coronary artery without angina pectoris; E78.5 Hyperlipidemia, unspecified; I42.9 Cardiomyopathy, unspecified; I34.0 Nonrheumatic mitral (valve) insufficiency; D50.9 Iron deficiency anemia, unspecified; R45.1 Restlessness and agitation; I25.2 Old myocardial infarction; Z87.891 Personal history of nicotine dependence; Z79.899 Other long term (current) drug therapy; Z79.84 Long term (current) use of oral hypoglycemic drugs; Z79.82 Long term (current) use of aspirin
CPT/HCPCS: 71045; 80048; 80053; 82248; 82805; 83605; 83735; 83880; 84100; 84443; 84484; 85025; 85027; 85610; 85730; 93005; 93306; 94660; 96374; 97163; 97167; 99291